=== PATIENT | male | born 1930 | race Caucasian/White ===

== ENCOUNTER 2017-11-27 22:15 | Inpatient (IN) | payer MEDICARE ==
[~2017-11-27] VITALS: Ht 177.8 cm; Wt 71.4 kg
[2017-11-27 22:19] VITALS: BP 145/84; PULSE 77; RESP 16; TEMP 97.8; O2SAT 99
[2017-11-27] MEDS ORDERED: FURO1TAB62 PO (22:35)
[2017-11-27] MEDS ORDERED: LEVO112T2 PO (22:35)
[2017-11-27] MEDS ORDERED: METO25TA3 PO (22:35)
[2017-11-27] MEDS ORDERED: TERA2CAP3 PO (22:35)
[2017-11-27] MEDS ORDERED: CEPH-460 PO (22:35)
[2017-11-27] MEDS ORDERED: FINA5TAB2 (22:35)
[2017-11-27] MEDS ORDERED: XARE15TA PO (22:35)
[2017-11-27] MEDS ORDERED: VANCOMYCIN INJ 1,000 MG in SODIUM CHLOR 0.9% 250 ML INJ 250 ML IV ONE (22:45)
[2017-11-27] MEDS ORDERED: PIPERACIL-TAZO 2.25 GM PREMIX 50 ML IV ONE (22:45)
[2017-11-27 23:17] LABS: BILIRUBIN, URINE NEG (NEG); BLOOD, URINE TRACE (NEG); GLUCOSE,URINE NEG (NEG); KETONE, URINE NEG (NEG); NITRITE,URINE NEG (NEG); URINE COLOR YELLOW (YELLW/STRAW); URINE LEUKOCYTE ESTERASE NEG (NEG)
[2017-11-27 23:18] LABS: AUTOMATED NEUTROPHIL # 8.2 TH/MM3 (1.8-7.7); BASOPHIL # 0.1 TH/MM3 (0-0.2); EOSINOPHIL # 0.4 TH/MM3 (0-0.4); EOSINOPHIL % 3.8 % (0.0-4.0); HEMATOCRIT 34.1 % (39.0-51.0); HEMOGLOBIN 10.7 GM/DL (13.0-17.0); LYMPH % 5.2 % (9.0-44.0); LYMPHOCYTE # 0.5 TH/MM3 (1.0-4.8); MEAN CELL VOLUME 79.2 FL (80.0-100.0); MEAN CORPUSCULAR HEMOGLOBIN 24.9 PG (27.0-34.0); MEAN CORPUSCULAR HGB CONC 31.4 % (32.0-36.0); MEAN PLATELET VOLUME 7.4 FL (7.0-11.0); MONOCYTE # 0.9 TH/MM3 (0-0.9); PLATELET COUNT 221 TH/MM3 (150-450); RED BLOOD COUNT 4.31 MIL/MM3 (4.50-5.90); RED CELL DISTRIBUTION WIDTH 16.1 % (11.6-17.2); WHITE BLOOD COUNT 10.1 TH/MM3 (4.0-11.0)
[2017-11-27 23:22] LABS: RBC, URINE 0-3 /hpf (0-3); SQUAMOUS EPITHELIAL CELL URINE 0-5 /hpf (0-5); WBC, URINE 0-2 /hpf (0-5)
[2017-11-27 23:26] LABS: CHLORIDE 97 MEQ/L (98-107); SODIUM (NA) 129 MEQ/L (136-145)
[2017-11-27 23:29] LABS: CALCIUM 8.2 MG/DL (8.5-10.1)
[2017-11-27 23:30] LABS: ALBUMIN 3.5 GM/DL (3.4-5.0); GLUCOSE,RANDOM 98 MG/DL (74-106)
[2017-11-27 23:32] LABS: INTERNATIONAL NORMALIZED RATIO 1.2 RATIO; PROTHROMBIN TIME - PATIENT 12.5 SEC (9.8-11.6)
[2017-11-27 23:33] LABS: ALT (GPT) 32 U/L (12-78); AST (GOT) 26 U/L (15-37); GLOMERULAR FILTRATION RATE 34 ML/MIN (>89)
[2017-11-27 23:34] LABS: BLOOD UREA NITROGEN 38 MG/DL (7-18); TOTAL BILIRUBIN ADULT 0.6 MG/DL (0.2-1.0); TOTAL PROTEIN 6.9 GM/DL (6.4-8.2)
[2017-11-27 23:36] LABS: ALKALINE PHOSPHATASE 89 U/L (45-117)
[2017-11-27 23:38] LABS: TROPONIN I LESS THAN 0.02 NG/ML (0.02-0.05)
[2017-11-27] MEDS ORDERED: SODIUM CHLOR 0.9% 1000 ML INJ 1,000 ML IV ONE (23:45)
--- NOTE | 2017-11-27 23:53 | PD ---
HPI Chief Complaint: Edema Time Seen by Provider: 22:41 Travel History International Travel<30 days: No Contact w/Intl Traveler<30days: No Traveled to known affect area: No History of Present Illness HPI 86-year-old male with history of hypertension and hypothyroidism here for evaluation of right arm swelling for the last 2 days. Patient states that he was scratching his skin and at the same day he started noticing right arm swelling and redness. Patient went to an urgent care and they give him Keflex and started taking it but it seems that his symptoms are getting worse. He has no fever or chills or night sweats, no chest pain or shortness of breath. Patient takes Xarelto for A. fib and denies any blood in the stool or any excessive bleeding. PFSH Past Medical History Atrial Fibrillation: Yes Heart Rhythm Problems: Yes Cardiovascular Problems: Yes Hypertension: Yes Thyroid Disease: Yes Tetanus Vaccination: Unknown ?: Not Social History Alcohol Use: No Tobacco Use: No Substance Use: No Allergies-Medications (Allergen,Severity, Reaction): Coded Allergies: epinephrine (Verified Allergy, Intermediate, 11/27/17) Reported Meds & Prescriptions Reported Meds & Active Scripts Active Reported Keflex (Cephalexin) 500 Mg Cap 500 Mg PO Q8H Levothyroxine (Levothyroxine Sodium) 112 Mcg Tab 112 Mcg PO DAILY Xarelto (Rivaroxaban) 15 Mg Tab 15 Mg PO DAILY Terazosin (Terazosin HCl) 2 Mg Cap 2 Mg PO HS Finasteride 5 Mg Tab 5 Mg DAILY Do not crush. Metoprolol Tartrate 25 Mg Tab 25 Mg PO DAILY Lasix (Furosemide) 20 Mg Tab 20 Mg PO DAILY Review of Systems Except as stated in HPI: all other systems reviewed are Neg Physical Exam Narrative GENERAL: Alert oriented 3 no acute distress SKIN: Focused skin assessment warm/dry. HEAD: Atraumatic. Normocephalic. EYES: Pupils equal and round. No scleral icterus. No injection or drainage. ENT: No nasal bleeding or discharge. Mucous membranes pink and moist. NECK: Trachea midline. No JVD. CARDIOVASCULAR: Regular rate and rhythm. No murmur appreciated. RESPIRATORY: No accessory muscle use. Clear to auscultation. Breath sounds equal bilaterally. GASTROINTESTINAL: Abdomen soft, non-tender, nondistended. Hepatic and splenic margins not palpable. MUSCULOSKELETAL: Right arm swelling and erythema and warm to touch above the elbow, area of dark discoloration in the dorsal aspect of the right hand, no crepitus, no ulcers or open wounds. Pulses intact in all 4 extremities, no motor sensory loss. NEUROLOGICAL: Awake and alert. No obvious cranial nerve deficits. Motor grossly within normal limits. Normal speech. PSYCHIATRIC: Appropriate mood and affect; insight and judgment normal. Data Data Last Documented VS Vital Signs Date Time Temp Pulse Resp B/P (MAP) Pulse Ox O2 Delivery O2 Flow Rate FiO2 11/27/17 22:26 98 Room Air 11/27/17 22:19 97.8 77 16 145/84 (104) Orders Orders Complete Blood Count With Diff (11/27/17 22:41) Comprehensive Metabolic Panel (11/27/17 22:41) Lactic Acid (11/27/17 22:41) Act Partial Throm Time (Ptt) (11/27/17 22:41) Prothrombin Time / Inr (Pt) (11/27/17 22:41) Troponin I (11/27/17 22:41) Urinalysis - C+S If Indicated (11/27/17 22:41) C-Reactive Protein (Crp) (11/27/17 22:41) Blood Culture (11/27/17 22:41) Vancomycin Inj (Vancomycin Inj) (11/27/17 22:45) Piperacil-Tazo 2.25 Gm Premix (Zosyn 2.2 (11/27/17 22:45) Sodium Chlor 0.9% 1000 Ml Inj (Ns 1000 M (11/27/17 23:45) Admit Order (Ed Use Only) (11/28/17 00:00) Labs Laboratory Tests Test 11/27/17 23:00 White Blood Count 10.1 TH/MM3 Red Blood Count 4.31 MIL/MM3 Hemoglobin 10.7 GM/DL Hematocrit 34.1 % Mean Corpuscular Volume 79.2 FL Mean Corpuscular Hemoglobin 24.9 PG Mean Corpuscular Hemoglobin Concent 31.4 % Red Cell Distribution Width 16.1 % Platelet Count 221 TH/MM3 Mean Platelet Volume 7.4 FL Neutrophils (%) (Auto) 81.0 % Lymphocytes (%) (Auto) 5.2 % Monocytes (%) (Auto) 9.0 % Eosinophils (%) (Auto) 3.8 % Basophils (%) (Auto) 1.0 % Neutrophils # (Auto) 8.2 TH/MM3 Lymphocytes # (Auto) 0.5 TH/MM3 Monocytes # (Auto) 0.9 TH/MM3 Eosinophils # (Auto) 0.4 TH/MM3 Basophils # (Auto) 0.1 TH/MM3 CBC Comment DIFF FINAL Differential Comment Prothrombin Time 12.5 SEC Prothromb Time International Ratio 1.2 RATIO Activated Partial Thromboplast Time 28.6 SEC Urine Color YELLOW Urine Turbidity CLEAR Urine pH 5.0 Urine Specific [place] 1.010 Urine Protein NEG mg/dL Urine Glucose (UA) NEG mg/dL Urine Ketones NEG mg/dL Urine Occult Blood TRACE Urine Nitrite NEG Urine Bilirubin NEG Urine Urobilinogen 0.2 MG/DL Urine Leukocyte Esterase NEG Urine RBC 0-3 /hpf Urine WBC 0-2 /hpf Urine Squamous Epithelial Cells 0-5 /hpf Urine Bacteria NONE /hpf Microscopic Urinalysis Comment CULT NOT INDICATED Blood Urea Nitrogen 38 MG/DL Creatinine 1.90 MG/DL Random Glucose 98 MG/DL Total Protein 6.9 GM/DL Albumin 3.5 GM/DL Calcium Level 8.2 MG/DL Alkaline Phosphatase 89 U/L Aspartate Amino Transf (AST/SGOT) 26 U/L Alanine Aminotransferase (ALT/SGPT) 32 U/L Total Bilirubin 0.6 MG/DL Sodium Level 129 MEQ/L Potassium Level 4.5 MEQ/L Chloride Level 97 MEQ/L Carbon Dioxide Level 25.0 MEQ/L Anion Gap 7 MEQ/L Estimat Glomerular Filtration Rate 34 ML/MIN Lactic Acid Level 0.7 mmol/L Troponin I LESS THAN 0.02 NG/ML C-Reactive Protein 10.80 MG/DL [facility] Medical Decision Making Medical Screen Exam Complete: Yes Emergency Medical Condition: Yes Differential Diagnosis Cellulitis, DVT the right arm, necrotizing fasciitis. Narrative Course 86-year-old male here for evaluation of right hand/arm swelling rapidly progressing, examination reveals erythema warmth to touch and swelling of the right arm above the elbow, extension of the infection was marked and timed for further evaluation, labs significant for hypernatremia and left shift and elevated BUN and creatinine. Patient was started on IV fluids and IV antibiotics and blood cultures were drawn prior to the IV antibiotics. Patient will be admitted for failure of outpatient therapy for cellulitis, there is no crepitus on physical exam is no concern for necrotizing fasciitis meanwhile patient will need further evaluation for the hyponatremia. Patient may also need inpatient upper venous Doppler to rule out DVT the right arm. I discussed the case with Dr. Carrington Monzon who accepted the patient. Laboratory Tests Test 11/27/17 23:00 White Blood Count 10.1 TH/MM3 Red Blood Count 4.31 MIL/MM3 Hemoglobin 10.7 GM/DL Hematocrit 34.1 % Mean Corpuscular Volume 79.2 FL Mean Corpuscular Hemoglobin 24.9 PG Mean Corpuscular Hemoglobin Concent 31.4 % Red Cell Distribution Width 16.1 % Platelet Count 221 TH/MM3 Mean Platelet Volume 7.4 FL Neutrophils (%) (Auto) 81.0 % Lymphocytes (%) (Auto) 5.2 % Monocytes (%) (Auto) 9.0 % Eosinophils (%) (Auto) 3.8 % Basophils (%) (Auto) 1.0 % Neutrophils # (Auto) 8.2 TH/MM3 Lymphocytes # (Auto) 0.5 TH/MM3 Monocytes # (Auto) 0.9 TH/MM3 Eosinophils # (Auto) 0.4 TH/MM3 Basophils # (Auto) 0.1 TH/MM3 CBC Comment DIFF FINAL Differential Comment Prothrombin Time 12.5 SEC Prothromb Time International Ratio 1.2 RATIO Activated Partial Thromboplast Time 28.6 SEC Urine Color YELLOW Urine Turbidity CLEAR Urine pH 5.0 Urine Specific [place] 1.010 Urine Protein NEG mg/dL Urine Glucose (UA) NEG mg/dL Urine Ketones NEG mg/dL Urine Occult Blood TRACE Urine Nitrite NEG Urine Bilirubin NEG Urine Urobilinogen 0.2 MG/DL Urine Leukocyte Esterase NEG Urine RBC 0-3 /hpf Urine WBC 0-2 /hpf Urine Squamous Epithelial Cells 0-5 /hpf Urine Bacteria NONE /hpf Microscopic Urinalysis Comment CULT NOT INDICATED Blood Urea Nitrogen 38 MG/DL Creatinine 1.90 MG/DL Random Glucose 98 MG/DL Total Protein 6.9 GM/DL Albumin 3.5 GM/DL Calcium Level 8.2 MG/DL Alkaline Phosphatase 89 U/L Aspartate Amino Transf (AST/SGOT) 26 U/L Alanine Aminotransferase (ALT/SGPT) 32 U/L Total Bilirubin 0.6 MG/DL Sodium Level 129 MEQ/L Potassium Level 4.5 MEQ/L Chloride Level 97 MEQ/L Carbon Dioxide Level 25.0 MEQ/L Anion Gap 7 MEQ/L Estimat Glomerular Filtration Rate 34 ML/MIN Lactic Acid Level 0.7 mmol/L Troponin I LESS THAN 0.02 NG/ML C-Reactive Protein 10.80 MG/DL Diagnosis Primary Impression: Cellulitis Qualified Codes: L03.113 - Cellulitis of right upper limb Additional Impression: Hyponatremia Admitting Information Admitting Physician Requests: Admit Condition: Stable Nick Taylor MD Nov 27, 2017 23:53
[2017-11-28] VITALS (8 sets, daily range): BP systolic 134–161; BP diastolic 62–84; PULSE 72–87; RESP 16–20; TEMP 96.5–97.9; O2SAT 96–100
[2017-11-28] MEDS ORDERED: Vancomycin Consult Pharmacy 1 EA OTHER SCH (05:45)
[2017-11-28] MEDS: SODIUM CHLOR 0.9% 1000 ML INJ 1,000 ML IV SCH ×3 (05:56→22:02)
[2017-11-28] MEDS ORDERED: METO25TA3 PO (06:14)
[2017-11-28] MEDS: PIPERACIL-TAZO 2.25 GM PREMIX 50 ML IV SCH ×3 (06:15→22:05)
[2017-11-28] MEDS: LEVOTHYROXINE SODIUM 112 MCG TAB PO SCH (06:38)
--- NOTE | 2017-11-28 07:05 | MH ---
cc: Nicolás Shultz MD DATE OF ADMISSION: 11/28/2017 ADMISSION DIAGNOSES: 1. Cellulitis, right upper extremity. 2. Atrial fibrillation. 3. Hypothyroidism. 4. Benign prostatic hypertrophy. 5. Prior history of lymphoma PERTINENT HISTORY OF PRESENT ILLNESS: This is an 86-year-old white male who came in for increased swelling and redness of his right arm over the last 2 days. He had scratched his skin and developed some forearm redness a few days ago and went to an urgent care center and was put on Keflex, but in the last couple days, his redness and swelling has progressed down to the hand and up above the elbow region. It was previously on the mid forearm region. He came into the ED and cellulitis. He was given some vancomycin and Zosyn last night. His swelling has gone little down a little this morning, according to the nurse. He was admitted a little bit after midnight. He had no fever or chills. No other complaints. PAST MEDICAL HISTORY: He has atrial fibrillation and is on Xarelto. He denies any history of hypertension, even though the ER records indicate that he has hypertension. He is under treatment for hypothyroidism and BPH. He has had lymphoma treated with chemotherapy about 8 years ago and has no problems since he was in remission. He has had some skin cancers removed. He denies any heart attack, CHF, stroke, or diabetes. Denies liver or kidney disease, or colon disease. Denies any lung disease. He does take a diuretic for some intermittent swelling of his ankles. PAST SURGICAL HISTORY: He has had no operations other than for skin cancers removed. ALLERGIES: NONE. MEDICATIONS: He is on metoprolol 25 mg twice a day. Furosemide 20 mg. He uses it about 1 tablet every 48 hours, but can take it daily for swelling. He uses Terazosin 2 mg at bedtime. Xarelto 15 mg daily. Levothyroxine 112 mcg daily. He was on cephalexin 500 mg every 8 hours prior to coming in. FAMILY HISTORY: His mother at 83 of some sort of internal bleeding. His father in his 50s of a stroke. SOCIAL HISTORY: He is , has occasional beers, never smoked. 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 REVIEW OF SYSTEMS: GENERAL: No fever, chills, sweats. HEENT: Without complaints. CARDIOVASCULAR: No chest pain, orthopnea, PND. PULMONARY: No cough, hemoptysis, wheezing. GASTROINTESTINAL: No nausea, vomiting, abdominal pain, constipation, diarrhea. GENITOURINARY: Without dysuria or hematuria. MUSCULOSKELETAL: Without complaints. SKIN: As mentioned. NEUROLOGIC: Without any focal complaints. PHYSICAL EXAMINATION: GENERAL: Pleasant white male in no acute distress. VITAL SIGNS: Temperature 97.8, pulse 72, respirations 16, BP 143/68, O2 saturation 100% on room air. HEENT: TMs are clear. Pupils are equal. Sclerae nonicteric. Nose without lesion. Mouth without inflammation or lesion. NECK: Without bruit. No JVD. CARDIOVASCULAR: Irregularly irregular rhythm, consistent with atrial fibrillation. No murmur. LUNGS: Clear. ABDOMEN: Soft, nontender. No masses. EXTREMITIES: Pulses in both feet are about 1+. There is no ankle edema at this time. He has some bruising of both hands and a little bit of the forearm of both arms. He does have some redness of the right arm extending just a little bit from above the elbow down to the right hand, slightly warm to touch. NEUROLOGIC: Alert and oriented x 3. Motor and sensory intact. Cranial nerves intact. LABORATORY DATA: His white count was 10.1; hemoglobin 10.7; platelets are 221,000. His BUN was 38, creatinine 1.9, GFR 34. C-reactive protein was 10.8. Albumin and protein are normal. Sodium 129, potassium 4.5, chloride 97, CO2 of 25. Urinalysis was negative. INR was 1.2. ASSESSMENT: 1. Cellulitis, right upper extremity. 2. Atrial fibrillation. 3. Hypothyroidism. 4. Benign prostatic hypertrophy. 5. Prior history of lymphoma 6. Mild hyponatremia. 7. Probable stage III chronic kidney disease. PLAN: He has been put on vancomycin and Zosyn for now IV. We will give him IV fluids with normal saline to see if it will help his kidney function improve some. He will be maintained on his regular medications. Hopefully, we can transition him to an oral antibiotic in 48 hours. MD PALMA Prasad/JULIEN , 06:33 AM , 07:05 AM
[2017-11-28] MEDS: FUROSEMIDE 20 MG TAB PO SCH (08:26)
[2017-11-28] MEDS: FINASTERIDE 5 MG TAB PO SCH (08:26)
[2017-11-28] MEDS: METOPROLOL TARTRATE 25 MG TAB PO SCH ×2 (08:26→22:01)
[2017-11-28] MEDS: RIVAROXABAN 15 MG TAB PO SCH (08:27)
[2017-11-28 08:59] LABS: CREATININE 1.6 MG/DL (0.60-1.30)
[2017-11-28] MEDS ORDERED: TERAZOSIN HCL 1 MG CAP PO SCH (21:00)
[2017-11-28] MEDS ORDERED: VANCOMYCIN 1,000 MG/NS 250 ML IV SCH ×2 (21:00)
[2017-11-29] VITALS: BP 136/74; PULSE 72; RESP 20; TEMP 96; O2SAT 98
[2017-11-29] MEDS: PIPERACIL-TAZO 2.25 GM PREMIX 50 ML IV SCH (05:31)
[2017-11-29] MEDS: LEVOTHYROXINE SODIUM 112 MCG TAB PO SCH (05:31)
[2017-11-29] MEDS: SODIUM CHLOR 0.9% 1000 ML INJ 1,000 ML IV SCH (05:33)
[2017-11-29] MEDS ORDERED: VANCOMYCIN INJ 1,250 MG in SODIUM CHLOR 0.9% 250 ML INJ 250 ML IV SCH (06:00)
[2017-11-29 06:40] LABS: AUTOMATED NEUTROPHIL # 5.4 TH/MM3 (1.8-7.7); BASOPHIL % 0.6 % (0.0-2.0); EOSINOPHIL # 0.3 TH/MM3 (0-0.4); EOSINOPHIL % 4.7 % (0.0-4.0); HEMATOCRIT 32.1 % (39.0-51.0); HEMOGLOBIN 10.3 GM/DL (13.0-17.0); LYMPH % 6.5 % (9.0-44.0); LYMPHOCYTE # 0.4 TH/MM3 (1.0-4.8); MEAN CELL VOLUME 80.1 FL (80.0-100.0); MEAN CORPUSCULAR HEMOGLOBIN 25.8 PG (27.0-34.0); MEAN CORPUSCULAR HGB CONC 32.2 % (32.0-36.0); MEAN PLATELET VOLUME 7.3 FL (7.0-11.0); MONO % 12.2 % (0.0-8.0); MONOCYTE # 0.8 TH/MM3 (0-0.9); PLATELET COUNT 243 TH/MM3 (150-450); RED BLOOD COUNT 4.01 MIL/MM3 (4.50-5.90); RED CELL DISTRIBUTION WIDTH 15.9 % (11.6-17.2); WHITE BLOOD COUNT 6.9 TH/MM3 (4.0-11.0)
[2017-11-29 07:12] LABS: BICARBONATE 24.3 MEQ/L (21.0-32.0); CALCIUM 7.8 MG/DL (8.5-10.1); CREATININE 1.5 MG/DL (0.60-1.30)
--- NOTE | 2017-11-29 07:45 | HHI.PR ---
Subjective Remarks He has no complaints. He states he has no pain in his right arm and the swelling has resolved and redness much better. Objective Vitals Vital Signs Date Time Temp Pulse Resp B/P (MAP) Pulse Ox O2 Delivery O2 Flow Rate FiO2 11/29/17 00:00 96.0 72 20 136/74 (94) 98 11/28/17 20:00 96.5 72 20 134/79 (97) 96 11/28/17 16:00 97.8 84 19 139/84 (102) 98 11/28/17 12:00 97.1 87 20 140/74 (96) 100 11/28/17 08:00 11/28/17 08:00 96.9 81 19 161/82 (108) 99 Result Diagram: 11/29/17 0450 11/29/17 0450 Other Results Laboratory Tests Test 11/27/17 23:00 11/28/17 08:40 11/29/17 04:50 White Blood Count 10.1 TH/MM3 6.9 TH/MM3 Red Blood Count 4.31 MIL/MM3 4.01 MIL/MM3 Hemoglobin 10.7 GM/DL 10.3 GM/DL Hematocrit 34.1 % 32.1 % Mean Corpuscular Volume 79.2 FL 80.1 FL Mean Corpuscular Hemoglobin 24.9 PG 25.8 PG Mean Corpuscular Hemoglobin Concent 31.4 % 32.2 % Red Cell Distribution Width 16.1 % 15.9 % Platelet Count 221 TH/MM3 243 TH/MM3 Mean Platelet Volume 7.4 FL 7.3 FL Neutrophils (%) (Auto) 81.0 % 76.0 % Lymphocytes (%) (Auto) 5.2 % 6.5 % Monocytes (%) (Auto) 9.0 % 12.2 % Eosinophils (%) (Auto) 3.8 % 4.7 % Basophils (%) (Auto) 1.0 % 0.6 % Neutrophils # (Auto) 8.2 TH/MM3 5.4 TH/MM3 Lymphocytes # (Auto) 0.5 TH/MM3 0.4 TH/MM3 Monocytes # (Auto) 0.9 TH/MM3 0.8 TH/MM3 Eosinophils # (Auto) 0.4 TH/MM3 0.3 TH/MM3 Basophils # (Auto) 0.1 TH/MM3 0.0 TH/MM3 CBC Comment DIFF FINAL DIFF FINAL Differential Comment Prothrombin Time 12.5 SEC Prothromb Time International Ratio 1.2 RATIO Activated Partial Thromboplast Time 28.6 SEC Urine Color YELLOW Urine Turbidity CLEAR Urine pH 5.0 Urine Specific [place] 1.010 Urine Protein NEG mg/dL Urine Glucose (UA) NEG mg/dL Urine Ketones NEG mg/dL Urine Occult Blood TRACE Urine Nitrite NEG Urine Bilirubin NEG Urine Urobilinogen 0.2 MG/DL Urine Leukocyte Esterase NEG Urine RBC 0-3 /hpf Urine WBC 0-2 /hpf Urine Squamous Epithelial Cells 0-5 /hpf Urine Bacteria NONE /hpf Microscopic Urinalysis Comment CULT NOT INDICATED Blood Urea Nitrogen 38 MG/DL 32 MG/DL Creatinine 1.90 MG/DL 1.60 MG/DL 1.50 MG/DL Random Glucose 98 MG/DL 97 MG/DL Total Protein 6.9 GM/DL Albumin 3.5 GM/DL Calcium Level 8.2 MG/DL 7.8 MG/DL Alkaline Phosphatase 89 U/L Aspartate Amino Transf (AST/SGOT) 26 U/L Alanine Aminotransferase (ALT/SGPT) 32 U/L Total Bilirubin 0.6 MG/DL Sodium Level 129 MEQ/L 137 MEQ/L Potassium Level 4.5 MEQ/L 4.2 MEQ/L Chloride Level 97 MEQ/L 105 MEQ/L Carbon Dioxide Level 25.0 MEQ/L 24.3 MEQ/L Anion Gap 7 MEQ/L 8 MEQ/L Estimat Glomerular Filtration Rate 34 ML/MIN 41 ML/MIN 45 ML/MIN Lactic Acid Level 0.7 mmol/L Troponin I LESS THAN 0.02 NG/ML C-Reactive Protein 10.80 MG/DL Objective Remarks Exam: Pleasant male in no distress. HEENT: pupils equal, no scleral icterus, mouth negative Neck: No JVD Heart: RRR Lungs:Clear Abdomen: soft, nontender Extremities: the cellulitis of the right upper extremity is very much improved with no further swelling and the redness is barely visible now. He has ecchymosis of both hands and some on the forearms Neuro: No focal abnormalities. A/P Assessment and Plan Assessment: --Cellulitis right upper extremities that is much improved --Paroxysmal atrial fibrillation on Xarelto --Hypothyroidism --BPH --Hx of Lymphoma --Stage 3 CKD --Hyponatremia--resolved --Slight anemia likely secondary to his chronic kidney disease Plan: Stop his IV antibiotics. Start on Zyvox 600mg twice a day and discharge today. I told him to followup with his PCP (Dr Viera) in 2 days. He will resume his routine home medications. Nicolás Shultz MD Nov 29, 2017 07:45
[2017-11-29] MEDS ORDERED: ZYVO600T PO (07:52)
[2017-11-29 07:53] VITALS: BP 150/67; PULSE 68; RESP 20; TEMP 96.1; O2SAT 99
[2017-11-29] MEDS: FINASTERIDE 5 MG TAB PO SCH (08:50)
[2017-11-29] MEDS: FUROSEMIDE 20 MG TAB PO SCH (08:51)
[2017-11-29] MEDS: RIVAROXABAN 15 MG TAB PO SCH (08:51)
[2017-11-29] MEDS: METOPROLOL TARTRATE 25 MG TAB PO SCH (08:52)
[2017-11-29] MEDS ORDERED: LINEZOLID 600 MG TAB PO SCH (09:00)
[2017-11-29 11:26] VITALS: BP 144/70; PULSE 72; RESP 20; TEMP 96.4; O2SAT 98
--- NOTE | 2017-11-29 11:30 | PD.WCN.NOT ---
Wound Consult Additional Information: Spoke with MELINDA Carr 3rd floor PO.Patient was not seen. Patient is being discharged and per nurse, the wound to R leg is an open skin tear. Instructed MELINDA Carr to clean wound with normal saline or wound cleanser and apply oil emulsion gauze to partial thickness, dry skin tear, and cover with dry gauze rolled gauze and tape. Also, per RN Cellulitis to R arm is resolving and there are no open wounds noted to R arm. Kalyn Dye [facility] Nov 29, 2017 11:30
[2017-11-30] MEDS ORDERED: PHARMACY ORDERED LAB ONE (20:45)
[2017-12-02] MEDS ORDERED: PHARMACY ORDERED LAB ONE (05:45)
== END 2017-11-29 12:52 | disposition home or self-care (01) | DRG 603 ==
LOC: PHED 22:15 → PHEDA 11-28 00:02 → PHEDH 11-28 04:02 → OBSVTOIN 11-28 06:56 → PH3A 11-28 08:03
PROVIDERS: ADMIT Family Medicine; ATTEND Family Medicine
DX: L03.113 Cellulitis of right upper limb (principal); I48.0 Paroxysmal atrial fibrillation; E87.1 Hypo-osmolality and hyponatremia; N18.3 Chronic kidney disease, stage 3 (moderate); Z79.02 Long term (current) use of antithrombotics/antiplatelets; I12.9 Hypertensive chronic kidney disease with stage 1 through stage 4 chronic kidney disease, or unspecified chronic kidney disease; D63.1 Anemia in chronic kidney disease; E03.9 Hypothyroidism, unspecified; N40.0 Benign prostatic hyperplasia without lower urinary tract symptoms; Z85.72 Personal history of non-Hodgkin lymphomas
CPT/HCPCS: 80048; 80053; 81001; 82565; 83605; 84484; 85025; 85610; 85730; 86140; 87040; 96365; J2543; J3370; J7030; J7050

== ENCOUNTER 2017-12-11 14:00 | Inpatient (IN) | payer MEDICARE ==
[~2017-12-11] VITALS: Ht 179.1 cm; Wt 75.8 kg
[~2017-12-11 14:00] MED LIST: FINA5TAB2; FURO1TAB62 PO; LEVO112T2 PO; METO25TA3 PO; TERA2CAP3 PO; XARE15TA PO; ZYVO600T PO
[2017-12-11 14:24] VITALS: BP 117/62; PULSE 99; RESP 16; TEMP 98; O2SAT 98
[2017-12-11 15:45] VITALS: O2SAT 99
[2017-12-11 16:36] VITALS: BP 129/62; PULSE 87; RESP 16; O2SAT 99
[2017-12-11 16:39] LABS: BASOPHIL # 0.2 TH/MM3 (0-0.2); BASOPHIL % 1.7 % (0.0-2.0); EOSINOPHIL % 0.1 % (0.0-4.0); HEMATOCRIT 31.9 % (39.0-51.0); HEMOGLOBIN 10.5 GM/DL (13.0-17.0); LYMPH % 2.4 % (9.0-44.0); LYMPHOCYTE # 0.3 TH/MM3 (1.0-4.8); MEAN CORPUSCULAR HGB CONC 32.9 % (32.0-36.0); MEAN PLATELET VOLUME 7.6 FL (7.0-11.0); MONO % 1.1 % (0.0-8.0); MONOCYTE # 0.1 TH/MM3 (0-0.9); NEUT % 94.7 % (16.0-70.0); PLATELET COUNT 107 TH/MM3 (150-450); RED BLOOD COUNT 4.04 MIL/MM3 (4.50-5.90); RED CELL DISTRIBUTION WIDTH 15.4 % (11.6-17.2); WHITE BLOOD COUNT 10.6 TH/MM3 (4.0-11.0)
--- NOTE | 2017-12-11 16:46 | RADRPT ---
EXAM DATE: 12/11/2017 4:23 PM EDT AGE/SEX: 87 years / Male INDICATIONS: Right leg swelling. CLINICAL DATA: This is the patient's initial encounter. Patient reports that signs and symptoms have been present for 1 day and indicates a pain score of 5/10. MEDICAL/SURGICAL HISTORY: Hypertension. Thyroid disease. A-fib. Skin cancer. Anticoagulant ther apy. . Left shoulder skin cancer removal. COMPARISON: No prior exams available for comparison. TECHNIQUE: Venous ultrasound of both lower extremities was performed from the inguinal ligament to t he proximal calf. Real-time, color Doppler and spectral tracing, compression and augmentation techni ques were used. FINDINGS: There is good visualization of the venous system. Veins are easily compressible with augme ntable flow. There is no evidence of deep venous thrombosis. Generalized tissue edema is evident. CONCLUSION: Negative for deep venous thrombosis. Electronically signed by: William Mejia MD 12/11/2017 4:44 PM EDT
[2017-12-11 16:50] LABS: ALBUMIN 2.8 GM/DL (3.4-5.0); ALKALINE PHOSPHATASE 100 U/L (45-117); ALT (GPT) 20 U/L (12-78); AST (GOT) 12 U/L (15-37); BICARBONATE 20.5 MEQ/L (21.0-32.0); BLOOD UREA NITROGEN 44 MG/DL (7-18); CALCIUM 8.3 MG/DL (8.5-10.1); CHLORIDE 94 MEQ/L (98-107); GLOMERULAR FILTRATION RATE 44 ML/MIN (>89); GLUCOSE,RANDOM 105 MG/DL (74-106); TOTAL BILIRUBIN ADULT 1.3 MG/DL (0.2-1.0); TOTAL PROTEIN 6.3 GM/DL (6.4-8.2)
[2017-12-11 16:52] LABS: SODIUM (NA) 124 MEQ/L (136-145)
[2017-12-11] MEDS ORDERED: VANCOMYCIN INJ 1,100 MG in SODIUM CHLOR 0.9% 250 ML INJ 250 ML IV ONE (17:15)
--- NOTE | 2017-12-11 17:38 | PD ---
HPI Chief Complaint: Edema Time Seen by Provider: 15:06 Travel History International Travel<30 days: No Contact w/Intl Traveler<30days: No Traveled to known affect area: No History of Present Illness HPI This is an 87-year-old male who presents to the emergency department with right lower extremity swelling that has been going on for 4 days, constant, severe, worsening associated with pain. He was seen at an urgent care 4 days ago and had an ultrasound of the leg which was negative. The leg is gotten more red and more painful. Preceding this he was given exercises by physical therapy for his ankle and calf which he thinks may have exacerbated the swelling. He denies any other injuries. He is on Xarelto. He has a history of cellulitis in the right upper extremity for which he just finished a long course of linezolid. He denies any fevers or chills. PFSH Past Medical History Hx Anticoagulant Therapy: Yes Atrial Fibrillation: Yes Heart Rhythm Problems: Yes Cancer: Yes (LEFT SHOLDER SKIN CXR ) Cardiovascular Problems: Yes (a-fib) Diminished Hearing: Yes Endocrine: Yes Hypertension: Yes Musculoskeletal: No Neurologic: No Respiratory: No Thyroid Disease: Yes Tetanus Vaccination: > 5 Years Influenza Vaccination: No ?: Not Past Surgical History Other Surgery: Yes (SKIN CXR LEFT SHOLDER REMOVAL ) Social History Alcohol Use: No Tobacco Use: No Substance Use: No Allergies-Medications (Allergen,Severity, Reaction): Coded Allergies: epinephrine (Verified Allergy, Intermediate, 12/11/17) Reported Meds & Prescriptions Reported Meds & Active Scripts Active Reported Metoprolol Tartrate 25 Mg Tab 25 Mg PO BID Levothyroxine (Levothyroxine Sodium) 112 Mcg Tab 112 Mcg PO DAILY Xarelto (Rivaroxaban) 15 Mg Tab 15 Mg PO DAILY Terazosin (Terazosin HCl) 2 Mg Cap 2 Mg PO HS Finasteride 5 Mg Tab 5 Mg DAILY Do not crush. Lasix (Furosemide) 20 Mg Tab 20 Mg PO DAILY Review of Systems Except as stated in HPI: all other systems reviewed are Neg Physical Exam Narrative GENERAL:Well appearing, no acute distress SKIN: Dark erythema and some warmth of the right lower extremity with scattered ecchymoses from the knee down to the ankle, well-healing wound on the right lateral distal lower extremity HEAD: Atraumatic. Normocephalic. EYES: Pupils equal and round. No injection or drainage. ENT: Moist mucous membranes. NECK: Trachea midline. CARDIOVASCULAR: Regular rate and rhythm. No murmur appreciated. Jugular venous distention. 2+ pretibial edema in the left lower extremity, 3+ edema in the right lower extremity RESPIRATORY: Clear to auscultation. Breath sounds equal bilaterally. GASTROINTESTINAL: Abdomen soft, non-tender, nondistended. MUSCULOSKELETAL: No obvious deformities. NEUROLOGICAL: Awake and alert. No obvious cranial nerve deficits. Moving all extremities. PSYCHIATRIC: Appropriate mood and affect; insight and judgment normal. Data Data Last Documented VS Vital Signs Date Time Temp Pulse Resp B/P (MAP) Pulse Ox O2 Delivery O2 Flow Rate FiO2 12/11/17 17:40 92 18 115/63 (80) 99 Room Air 12/11/17 14:24 98.0 Orders Orders Complete Blood Count With Diff (12/11/17 15:17) Comprehensive Metabolic Panel (12/11/17 15:17) Ecg Monitoring (12/11/17 15:17) Iv Access Insert/Monitor (12/11/17 15:17) Oximetry (12/11/17 15:17) Oxygen Administration (12/11/17 15:17) Us Leg Venous Doppler (12/11/17 ) Westergren Sedimentation Rate (12/11/17 15:17) C-Reactive Protein (Crp) (12/11/17 15:17) B-Type Natriuretic Peptide (12/11/17 17:06) Vancomycin Inj (Vancomycin Inj) (12/11/17 17:15) Admit Order (Ed Use Only) (12/11/17 17:55) Labs Laboratory Tests Test 12/11/17 15:45 12/11/17 16:31 White Blood Count 10.6 TH/MM3 Red Blood Count 4.04 MIL/MM3 Hemoglobin 10.5 GM/DL Hematocrit 31.9 % Mean Corpuscular Volume 79.0 FL Mean Corpuscular Hemoglobin 26.0 PG Mean Corpuscular Hemoglobin Concent 32.9 % Red Cell Distribution Width 15.4 % Platelet Count 107 TH/MM3 Mean Platelet Volume 7.6 FL Neutrophils (%) (Auto) 94.7 % Lymphocytes (%) (Auto) 2.4 % Monocytes (%) (Auto) 1.1 % Eosinophils (%) (Auto) 0.1 % Basophils (%) (Auto) 1.7 % Neutrophils # (Auto) 10.0 TH/MM3 Lymphocytes # (Auto) 0.3 TH/MM3 Monocytes # (Auto) 0.1 TH/MM3 Eosinophils # (Auto) 0.0 TH/MM3 Basophils # (Auto) 0.2 TH/MM3 CBC Comment AUTO DIFF Differential Comment AUTO DIFF CONFIRMED Erythrocyte Sedimentation Rate 50 mm/hr Blood Urea Nitrogen 44 MG/DL Creatinine 1.50 MG/DL Random Glucose 105 MG/DL Total Protein 6.3 GM/DL Albumin 2.8 GM/DL Calcium Level 8.3 MG/DL Alkaline Phosphatase 100 U/L Aspartate Amino Transf (AST/SGOT) 12 U/L Alanine Aminotransferase (ALT/SGPT) 20 U/L Total Bilirubin 1.3 MG/DL Sodium Level 124 MEQ/L Potassium Level 4.8 MEQ/L Chloride Level 94 MEQ/L Carbon Dioxide Level 20.5 MEQ/L Anion Gap 10 MEQ/L Estimat Glomerular Filtration Rate 44 ML/MIN C-Reactive Protein 17.40 MG/DL B-Type Natriuretic Peptide 950 PG/ML MDM Medical Decision Making Medical Screen Exam Complete: Yes Emergency Medical Condition: Yes Interpretation(s) Afebrile, mild tachycardia, normotensive No leukocytosis Anemia Sed rate and CRP are elevated Hyponatremia Creatinine is 1.5 BNP is 950 Total bilirubin is 1.3 Differential Diagnosis Cellulitis, DVT, hematoma, electrolyte abnormality, congestive heart failure, renal failure Narrative Course This is an 87-year-old male who presents to the emergency department with increasing right lower extremity swelling over the past several days. He is a history of recent cellulitis in his right upper extremity. He has a chronic healing wound on his right lower extremity. On exam his leg is edematous, warm and erythematous. He was placed on a monitor and an IV was established. Labs were obtained which demonstrate no leukocytosis but elevated inflammatory markers. He is hyponatremic and on exam he has peripheral edema and jugular venous distention concerning for congestive heart failure. BNP was added which was 950. I think this is a new diagnosis for the patient although he is on Lasix at home. Patient will be admitted for IV antibiotics in the setting of cellulitis of the right lower extremity as well as for diuresis and electrolyte management in the setting of hyponatremia. Physician Communication Physician Communication Discussed with Dr. Srivastava Diagnosis Primary Impression: Cellulitis of right lower extremity Additional Impressions: Hyponatremia Congestive heart failure Qualified Codes: I50.9 - Heart failure, unspecified Admitting Information Admitting Physician Requests: it Kate Redmond MD Dec 11, 2017 17:38
[2017-12-11 17:40] VITALS: BP 115/63; PULSE 92; RESP 18; O2SAT 99
[2017-12-11] MEDS ORDERED: MAGNESIUM HYDROXIDE SUSP 30 ML CUP PO PRN (19:15)
[2017-12-11] MEDS ORDERED: ACETAMINOPHEN 325 MG TAB PO PRN (19:15)
[2017-12-11] MEDS: SODIUM CHLOR 0.9% 1000 ML INJ 1,000 ML IV SCH (19:15)
[2017-12-11] MEDS ORDERED: NALOXONE HCL 0.4 MG/ML AMP IV PUSH PRN (19:15)
[2017-12-11] MEDS ORDERED: BISACODYL 10 MG SUPP RECTAL PRN (19:15)
[2017-12-11] MEDS ORDERED: SENNOSIDES 8.6 MG TAB PO PRN (19:15)
[2017-12-11] MEDS ORDERED: LACTULOSE SYRUP 20 GM/30 ML CUP PO PRN (19:15)
[2017-12-11] MEDS ORDERED: SODIUM CHLORIDE 0.9% FLUSH 10 ML FLUSH IV FLUSH PRN (19:15)
--- NOTE | 2017-12-11 19:28 | HHI.HP ---
HPI Service [facility] Hospitalists Primary Care Physician Alley Viera MD Admission Diagnosis cellulitis, hyponatremia Chief Complaint: 4days progressive swelling warmth rt lower extremity Travel History International Travel<30 Days: No Contact w/Intl Traveler <30 Da: No Traveled to Known Affected Are: No History of Present Illness This is an 87-year-old male who presents to the emergency department with right lower extremity swelling that has been going on for 4 days, constant, severe, worsening associated with pain. He was seen at an urgent care 4 days ago and had an ultrasound of the leg which was negative. The leg is gotten more red and more painful. Preceding this he was given exercises by physical therapy for his ankle and calf which he thinks may have exacerbated the swelling. He denies any other injuries. He is on Xarelto. He has a history of cellulitis in the right upper extremity for which he just finished a long course of linezolid was in hospital about 8 days ago. He denies any fevers or chills. Patient in er found to have rt lower extremity cellulitis also some chronic kidney disease and low sodium ,patient states appetite has been poor lately,a BNP was done and was elevated at 900 patient intermittently takes Lasix he thinks for edema. Denies fever ,chills ,SOB,chest pain recent rt upper extremity edema and cellulitis which resolved. Review of Systems Musculoskeletal: COMPLAINS OF: Joint Swelling Other pain to rt lower leg Past Family Social History Past Medical History atrial fib,hypothyroid,BPH,?edema vs chf, Past Surgical History skin cancer treatment Reported Medications lopressor 25 bid,lasix 20 ?intermittent usage Allergies: Coded Allergies: epinephrine (Verified Allergy, Intermediate, 12/11/17) Family History cva sister Social History NS rare beer Physical Exam Vital Signs Vital Signs Date Time Temp Pulse Resp B/P (MAP) Pulse Ox O2 Delivery O2 Flow Rate FiO2 12/11/17 17:40 92 18 115/63 (80) 99 Room Air 12/11/17 16:36 87 16 129/62 (84) 99 Room Air 12/11/17 15:45 99 Room Air 12/11/17 15:45 99 Room Air 12/11/17 15:00 93 18 99 Room Air 12/11/17 14:24 98.0 99 16 117/62 (80) 98 Physical Exam GENERAL: This is a well-nourished, well-developed patient, in no apparent distress. SKIN: No rashes, ecchymoses or lesions. Cool and dry. Right lower extremity- dark erythema warmth with areas of ecchymosis knee down to ankle healed wounds rt lower extremity HEAD: Atraumatic. Normocephalic. No temporal or scalp tenderness. EYES: Pupils equal round and reactive. Extraocular motions intact. No scleral icterus. No injection or drainage. ENT: Nose without bleeding, purulent drainage or septal hematoma. Throat without erythema, tonsillar hypertrophy or exudate. Uvula midline. Airway patent. NECK: Trachea midline. No JVD or lymphadenopathy. Supple, nontender, no meningeal signs. CARDIOVASCULAR: Regular rate and rhythm without murmurs, gallops, or rubs. RESPIRATORY: Clear to auscultation. Breath sounds equal bilaterally. No wheezes , rales, or rhonchi. GASTROINTESTINAL: Abdomen soft, non-tender, nondistended. No hepato-splenomegaly , or palpable masses. No guarding. MUSCULOSKELETAL: Extremities without clubbing, cyanosis, or edema. No joint tenderness, effusion, or edema noted. No calf tenderness. Negative Homans sign bilaterally. NEUROLOGICAL: Awake and alert. Cranial nerves II through XII intact. Motor and sensory grossly within normal limits. Five out of 5 muscle strength in all muscle groups. Normal speech. Laboratory Laboratory Tests Test 12/11/17 15:45 12/11/17 16:31 White Blood Count 10.6 Red Blood Count 4.04 Hemoglobin 10.5 Hematocrit 31.9 Mean Corpuscular Volume 79.0 Mean Corpuscular Hemoglobin 26.0 Mean Corpuscular Hemoglobin Concent 32.9 Red Cell Distribution Width 15.4 Platelet Count 107 Mean Platelet Volume 7.6 Neutrophils (%) (Auto) 94.7 Lymphocytes (%) (Auto) 2.4 Monocytes (%) (Auto) 1.1 Eosinophils (%) (Auto) 0.1 Basophils (%) (Auto) 1.7 Neutrophils # (Auto) 10.0 Lymphocytes # (Auto) 0.3 Monocytes # (Auto) 0.1 Eosinophils # (Auto) 0.0 Basophils # (Auto) 0.2 CBC Comment AUTO DIFF Differential Comment AUTO DIFF CONFIRMED Erythrocyte Sedimentation Rate 50 Blood Urea Nitrogen 44 Creatinine 1.50 Random Glucose 105 Total Protein 6.3 Albumin 2.8 Calcium Level 8.3 Alkaline Phosphatase 100 Aspartate Amino Transf (AST/SGOT) 12 Alanine Aminotransferase (ALT/SGPT) 20 Total Bilirubin 1.3 Sodium Level 124 Potassium Level 4.8 Chloride Level 94 Carbon Dioxide Level 20.5 Anion Gap 10 Estimat Glomerular Filtration Rate 44 C-Reactive Protein 17.40 B-Type Natriuretic Peptide 950 Result Diagram: 12/11/17 1545 12/11/17 1545 Imaging Last 24 hours Impressions Lower Extremity Ultrasound 12/11/17 0000 Signed Impressions: CONCLUSION: Negative for deep venous thrombosis. Course in er started on vancomycin Caprini VTE Risk Assessment Caprini VTE Risk Assessment: Mod/High Risk (score >= 2) Caprini Risk Assessment Model Point Value = 1 Point Value = 2 Point Value = 3 Point Value = 5 Age 41-60 Minor surgery BMI > 25 kg/m2 Swollen legs Varicose veins or History of unexplained or recurrent spontaneous Oral contraceptives or hormone replacement Sepsis (< 1 month) Serious lung disease, including pneumonia (< 1 month) Abnormal pulmonary function Acute myocardial infarction Congestive heart failure (< 1 month) History of inflammatory bowel disease Medical patient at bed rest Age 61-74 Arthroscopic surgery Major open surgery (> 45 min) Laparoscopic surgery (> 45 min) Malignancy Confined to bed (> 72 hours) Immobilizing plaster cast Central venous access Age >= 75 History of VTE Family history of VTE Factor V Leiden Prothrombin [id number] Lupus anticoagulant Anticardiolipin antibodies Elevated serum homocysteine Heparin-induced thrombocytopenia Other congenital or acquired thrombophilia Stroke (< 1 month) Elective arthroplasty Hip, pelvis, or leg fracture Acute spinal cord injury (< 1 month) Prophylaxis Regimen Total Risk Factor Score Risk Level Prophylaxis Regimen 0-1 Low Early ambulation 2 Moderate Order ONE of the following: *Sequential Compression Device (SCD) *Heparin 5000 units SQ BID 3-4 Higher Order ONE of the following medications: *Heparin 5000 units SQ TID *Enoxaparin/Lovenox 40 mg SQ daily (WT < 150 kg, CrCl > 30 mL/min) *Enoxaparin/Lovenox 30 mg SQ daily (WT < 150 kg, CrCl > 10-29 mL/min) *Enoxaparin/Lovenox 30 mg SQ BID (WT < 150 kg, CrCl > 30 mL/min) AND/OR *Sequential Compression Device (SCD) 5 or more Highest Order ONE of the following medications: *Heparin 5000 units SQ TID (Preferred with Epidurals) *Enoxaparin/Lovenox 40 mg SQ daily (WT < 150 kg, CrCl > 30 mL/min) *Enoxaparin/Lovenox 30 mg SQ daily (WT < 150 kg, CrCl > 10-29 mL/min) *Enoxaparin/Lovenox 30 mg SQ BID (WT < 150 kg, CrCl > 30 mL/min) AND *Sequential Compression Device (SCD) Assessment and Plan Problem List: (1) Cellulitis of right lower extremity ICD Codes: L03.115 - Cellulitis of right lower limb Plan: will start on vancomycin follow labs did have elevated sed rate at 50 and CRP,rt lower extremity ultrasound was negative (2) Hyponatremia ICD Codes: E87.1 - Hypo-osmolality and hyponatremia Plan: may be component of dehydration as patient stated his appetite was poor recently will hydrate slowly as there is question of CHF (3) Elevated brain natriuretic peptide (BNP) level ICD Codes: R79.89 - Other specified abnormal findings of blood chemistry Plan: will follow up labs will get chest xray and ekg and 2d echo continue lasix for now PO (4) Atrial fibrillation ICD Codes: I48.91 - Unspecified atrial fibrillation Plan: continue lopressor and Xarelto 15 (5) CKD (chronic kidney disease) ICD Codes: N18.9 - Chronic kidney disease, unspecified Plan: will follow labs Assessment and Plan further plan as case develops ,patient believes he over did it with rehab at home that could have contributed to his cellulitis Code Status full Discussed Condition With patient Physician Certification 2 Midnight Certification Type: Admission for Inpatient Services Order for Inpatient Services The services are ordered in accordance with Medicare regulations or non- Medicare payer requirements, as applicable. In the case of services not specified as inpatient-only, they are appropriately provided as inpatient services in accordance with the 2-midnight benchmark. Estimated LOS (days): 3 3 days is the estimated time the patient will need to remain in the hospital, assuming treatment plan goals are met and no additional complications. Post-Hospital Plan: Not yet determined Problem Qualifiers (1) CKD (chronic kidney disease): Qualified Codes: N18.3 - Chronic kidney disease, stage 3 (moderate) Yaakov Baldwin MD Dec 11, 2017 19:28
[2017-12-11] MEDS ORDERED: Vancomycin Consult Pharmacy 1 EA OTHER SCH (20:00)
[2017-12-11 20:15] VITALS: BP 137/77; PULSE 101; RESP 20; TEMP 97.4; O2SAT 98
--- NOTE | 2017-12-11 20:15 | RADRPT ---
EXAM DATE: 12/11/2017 7:47 PM EDT AGE/SEX: 87 years / Male INDICATIONS: Shortness of breath. Cellulitis. CLINICAL DATA: This is the patient's initial encounter. Patient reports that signs and symptoms have been present for 1 day and indicates a pain score of 0/10. MEDICAL/SURGICAL HISTORY: . Hypertension. Thyroid disease. A-fib. Skin cancer. Anticoagulant th erapy. . Left shoulder skin cancer removal. COMPARISON: No prior exams available for comparison. FINDINGS: Heart size enlarged. Tortuous aorta. Mild basilar atelectasis. Small pleural effusions. No significan t lung consolidation. CONCLUSION: Cardiomegaly with trace pleural effusions. Electronically signed by: Teddy Pedersen MD 12/11/2017 8:14 PM EDT
[2017-12-11 21:00] VITALS: PULSE 111
[2017-12-11] MEDS: SODIUM CHLORIDE 0.9% FLUSH 10 ML FLUSH IV FLUSH SCH (21:00)
[2017-12-11] MEDS: DOCUSATE SODIUM 50 MG/SENNA 8.6 MG TAB PO SCH (21:00)
[2017-12-11] MEDS: TERAZOSIN HCL 1 MG CAP PO SCH (21:43)
[2017-12-11] MEDS: METOPROLOL TARTRATE 25 MG TAB PO SCH (21:44)
[2017-12-12] VITALS (7 sets, daily range): BP systolic 106–124; BP diastolic 60–73; PULSE 93–116; RESP 15–20; TEMP 96.7–99.1; O2SAT 95–97
[2017-12-12] MEDS: LEVOTHYROXINE SODIUM 112 MCG TAB PO SCH (06:10)
[2017-12-12 06:35] LABS: AUTOMATED NEUTROPHIL # 8.2 TH/MM3 (1.8-7.7); BASOPHIL % 0.1 % (0.0-2.0); EOSINOPHIL % 0.2 % (0.0-4.0); HEMATOCRIT 27.5 % (39.0-51.0); HEMOGLOBIN 9.1 GM/DL (13.0-17.0); LYMPH % 2.2 % (9.0-44.0); LYMPHOCYTE # 0.2 TH/MM3 (1.0-4.8); MEAN CELL VOLUME 78.6 FL (80.0-100.0); MEAN CORPUSCULAR HGB CONC 33.1 % (32.0-36.0); MONO % 2.8 % (0.0-8.0); MONOCYTE # 0.2 TH/MM3 (0-0.9); NEUT % 94.7 % (16.0-70.0); PLATELET COUNT 93 TH/MM3 (150-450); RED CELL DISTRIBUTION WIDTH 14.8 % (11.6-17.2); WHITE BLOOD COUNT 8.6 TH/MM3 (4.0-11.0)
[2017-12-12 06:47] LABS: BICARBONATE 21.6 MEQ/L (21.0-32.0); CALCIUM 7.9 MG/DL (8.5-10.1)
[2017-12-12 06:51] LABS: CREATININE 1.3 MG/DL (0.60-1.30)
[2017-12-12] MEDS: SODIUM CHLOR 0.9% 1000 ML INJ 1,000 ML IV SCH (09:24)
[2017-12-12] MEDS: SODIUM CHLORIDE 0.9% FLUSH 10 ML FLUSH IV FLUSH SCH ×2 (09:56→22:30)
[2017-12-12] MEDS: METOPROLOL TARTRATE 25 MG TAB PO SCH ×2 (09:57→22:29)
[2017-12-12] MEDS: DOCUSATE SODIUM 50 MG/SENNA 8.6 MG TAB PO SCH ×2 (09:58→22:29)
[2017-12-12] MEDS: FUROSEMIDE 20 MG TAB PO SCH (09:58)
[2017-12-12] MEDS: RIVAROXABAN 15 MG TAB PO SCH (09:58)
[2017-12-12] MEDS: FINASTERIDE 5 MG TAB PO SCH (09:58)
[2017-12-12] MEDS ORDERED: WALKER WHEELS/F1 MIS (16:13)
[2017-12-12] MEDS ORDERED: COMMODE 3-IN-11 MIS (16:13)
--- NOTE | 2017-12-12 16:17 | HHI.FF ---
Face to Face Verification Diagnosis: (1) Cellulitis of right lower extremity (2) Hyponatremia Physical Therapy Order: Evaluate and Treat Occupational Therapy Order: Evaluate and Treat Home Health Nursing Order: Medical education Wound care and dressing changes Nursing assessment with vital signs I have seen patient Noe Crain on 12/12/17. My clinical findings support the need for the requested home health care services because: Deconditioned w/ increased weakness High risk of falls I certify that my clinical findings support that this patient is homebound because: Unsteady gait/balance Unsafe to leave home unassisted Alley Viera MD Dec 12, 2017 16:17
--- NOTE | 2017-12-12 16:28 | HHI.PR ---
Subjective Remarks Patient feels weak and fatigued. Only has pain of RLE when moving. No fevers or chills. No shortness of breath. Pt and report that he "overdid it" with PT prior to coming to the hospital. He is hesitant to do PT here in hospital. He has not been out of bed today. requests walker and BSC; worried about taking him home due to weakness. We discussed SNF as option depending on how he does with PT here. Has not had a BM since admission. Objective Vitals Vital Signs Date Time Temp Pulse Resp B/P (MAP) Pulse Ox O2 Delivery O2 Flow Rate FiO2 12/12/17 13:24 96.7 93 18 120/63 (82) 96 12/12/17 09:26 98.2 116 18 114/67 (83) 95 12/12/17 04:00 98.0 96 20 107/60 (76) 96 12/12/17 00:00 99.1 105 20 110/69 (83) 96 12/11/17 21:00 111 12/11/17 20:24 12/11/17 20:15 97.4 101 20 137/77 (97) 98 12/11/17 17:40 92 18 115/63 (80) 99 Room Air 12/11/17 16:36 87 16 129/62 (84) 99 Room Air 12/12/17 12/12/17 12/13/17 15:00 23:00 07:00 Intake Total 250 ml Balance 250 ml Intake Oral 250 ml Result Diagram: 12/12/17 0525 12/12/17 0525 Imaging Last 24 hours Impressions Lower Extremity Ultrasound 12/11/17 0000 Signed Impressions: CONCLUSION: Negative for deep venous thrombosis. Objective Remarks GENERAL: Well-nourished, well-developed pleasant elderly male patient. SKIN: Warm and dry. HEAD: Normocephalic. EYES: No scleral icterus. No injection or drainage. NECK: Supple, trachea midline. No JVD or lymphadenopathy. CARDIOVASCULAR: Irregularly rate and rhythm without murmurs, gallops, or rubs. RESPIRATORY: Breath sounds equal bilaterally. No crackles. No accessory muscle use. GASTROINTESTINAL: Abdomen soft, non-tender, nondistended. EXTREMITIES: patient has 1+ pedal edema b/l. RLE has dull erythema and is warm to touch and tender. Small right lateral calf wound (approx 3cm) shallow, healing well. NEUROLOGICAL: Awake, alert, and oriented x 3. Non-focal. A/P Problem List: (1) Cellulitis of right lower extremity ICD Codes: L03.115 - Cellulitis of right lower limb (2) Hyponatremia ICD Codes: E87.1 - Hypo-osmolality and hyponatremia Plan: (3) Elevated brain natriuretic peptide (BNP) level ICD Codes: R79.89 - Other specified abnormal findings of blood chemistry Plan: (4) Atrial fibrillation ICD Codes: I48.91 - Unspecified atrial fibrillation Plan: (5) CKD (chronic kidney disease) ICD Codes: N18.9 - Chronic kidney disease, unspecified Plan: (6) Pulmonary hypertension ICD Codes: I27.20 - Pulmonary hypertension, unspecified (7) Severe tricuspid regurgitation by prior echocardiogram ICD Codes: I07.1 - Rheumatic tricuspid insufficiency Assessment and Plan -Cellulitis RLE - cont vancomycin IV. Not improved enough yet for DC. Repeat labs in a.m. -Thrombocytopenia - this is a new finding for him. Possibly due to vancomycin? Will check fibrinogen, PTT, PT. Recheck CBC tomorrow. If continues to downtrend will ask hematology opinion. -Paroxysmal afib - continue metoprolol, cont xarelto 15 mg daily. He is followed by Dr. Shultz as outpatient. -CKD stage 3 - stable. -Mild hyponatremia - he has had this in the past. It is improved today. Decrease IV rate to NS 50 ml/hr and likely DC tomorrow. -Elevated BNP - no signs of pulmonary overload, cxr was clear lung matre did show trace pleural effusions, lungs are clear. 2d echo is pending. Decrease IVF and likely DC tomorrow. -Constipation - continue bowel regimen, mobilize. -Deconditioning - order PT. Problem Qualifiers (1) CKD (chronic kidney disease): Qualified Codes: N18.3 - Chronic kidney disease, stage 3 (moderate) Alley Viera MD Dec 12, 2017 16:28
--- NOTE | 2017-12-12 16:48 | EKG ---
Date Performed: 12/11/2017 Time Performed: 20:06:27 PTAGE: 87 years EKG: ATRIAL FIBRILLATION MARKED LEFT AXIS DEVIATION RIGHT BUNDLE BRANCH BLOCK PROBABLE SEPTAL MY OCARDIAL INFARCTION ABNORMAL ECG NO PREVIOUS TRACING DOCTOR: Ronnell Wise Interpretating Date/Time 12/12/2017 16:45:06
[2017-12-12] MEDS ORDERED: VANCOMYCIN 1,000 MG/NS 250 ML IV SCH ×2 (18:00)
[2017-12-12 18:09] LABS: INTERNATIONAL NORMALIZED RATIO 1.6 RATIO; PROTHROMBIN TIME - PATIENT 16.5 SEC (9.8-11.6)
--- NOTE | 2017-12-12 20:12 | ECHRPT ---
Indication: EF assessment of CHF CONCLUSIONS Normal left ventricular size. Mild concentric left ventricular hypertrophy. The left ventricular systolic function is low normal with an estimated ejection fraction in the rang e of 50- 55%. The left atrial size is moderately dilated. The right atrial size is [id number] dilated. Mild mitral valve regurgitation. Mild mitral annular calcification. There is moderate tricuspid regurgitation. The estimated pulmonary arterial pressure is 62 mmHg. BP: 107 / 60 HR: 98 Rhythm: Atrial fibrillation, Atrial flut ter MEASUREMENTS (Male / Female) Normal Values Technical Quality:Fair 2D ECHO LV Diastolic Diameter PLAX 5.1 cm 4.2 - 5.9 / 3.9 - 5.3 cm LV Systolic Diameter PLAX 3.9 cm IVS Diastolic Thickness 1.0 cm 0.6 - 1.0 / 0.6 - 0.9 cm LVPW Diastolic Thickness 1.0 cm 0.6 - 1.0 / 0.6 - 0.9 cm LV Relative Wall Thickness 0.4 RV Internal Dim ED PLAX 3.1 cm LVOT Diameter 2.3 cm Aortic Root Diameter 3.4 cm LA Systolic Diameter LX 4.7 cm 3.0 - 4.0 / 2.7 - 3.8 cm DOPPLER AV Peak Velocity 156.0 cm/s AV Peak Gradient 9.7 mmHg AV Mean Gradient 5.5 mmHg AV Velocity Time Integral 22.8 cm LVOT Peak Velocity 81.6 cm/s LVOT Peak Gradient 2.7 mmHg LVOT Velocity Time Integral 12.9 cm AV Area Cont Eq vti 2.4 cm AV Area Cont Eq pk 2.2 cm Mitral E Point Velocity 109.1 cm/s LV E' Lateral Velocity 14.1 cm/s Mitral E to LV E' Lateral Ratio 7.7 LV E' Septal Velocity 5.0 cm/s Mitral E to LV E' Septal Ratio 21.7 TR Peak Velocity 361.0 cm/s TR Peak Gradient 52.1 mmHg Right Atrial Pressure 10.0 mmHg Pulmonary Artery Systolic Pressu 62.1 mmHg Right Ventricular Systolic Press 62.1 mmHg FINDINGS LEFT VENTRICLE Normal left ventricular size. Mild concentric left ventricular hypertrophy. The left ventricular systolic function is low normal with an estimated ejection fraction in the rang e of 50- 55%. RIGHT VENTRICLE Normal right ventricular size and systolic function. LEFT ATRIUM The left atrial size is moderately dilated. RIGHT ATRIUM The right atrial size is [id number] dilated. ATRIAL SEPTUM No atrial level shunt is demonstrated by color flow Doppler interrogation. AORTA The aortic root and proximal ascending aorta are not well visualized. MITRAL VALVE Structurally normal mitral valve. Mild mitral valve regurgitation. Mild mitral annular calcification. AORTIC VALVE Trileaflet aortic valve. No aortic valve stenosis or regurgitation. TRICUSPID VALVE There is moderate tricuspid regurgitation. The estimated pulmonary arterial pressure is 62.1 mmHg. PULMONARY VALVE No pulmonary valve regurgitation or stenosis. VESSELS The inferior vena cava is normal in size. PERICARDIUM No pericardial effusion. Jordin Márquez MD, FACC (Electronically Signed) Final Date:12 December 2017 20:11
[2017-12-12] MEDS: TERAZOSIN HCL 1 MG CAP PO SCH (22:29)
[2017-12-13] VITALS: BP 100/63; PULSE 98; RESP 20; TEMP 99; O2SAT 96
[2017-12-13] MEDS: SODIUM CHLOR 0.9% 1000 ML INJ 1,000 ML IV SCH (03:36)
[2017-12-13 04:00] VITALS: BP 118/56; PULSE 88; RESP 20; TEMP 97.3; O2SAT 97
[2017-12-13] MEDS: LEVOTHYROXINE SODIUM 112 MCG TAB PO SCH (05:18)
[2017-12-13 06:43] LABS: AUTOMATED NEUTROPHIL # 6.4 TH/MM3 (1.8-7.7); BASOPHIL % 0.1 % (0.0-2.0); EOSINOPHIL % 0.7 % (0.0-4.0); HEMATOCRIT 28.1 % (39.0-51.0); HEMOGLOBIN 8.9 GM/DL (13.0-17.0); LYMPH % 4.9 % (9.0-44.0); LYMPHOCYTE # 0.3 TH/MM3 (1.0-4.8); MEAN CELL VOLUME 81.2 FL (80.0-100.0); MEAN CORPUSCULAR HEMOGLOBIN 25.8 PG (27.0-34.0); MEAN CORPUSCULAR HGB CONC 31.8 % (32.0-36.0); MONO % 3.9 % (0.0-8.0); MONOCYTE # 0.3 TH/MM3 (0-0.9); NEUT % 90.4 % (16.0-70.0); PLATELET COUNT 93 TH/MM3 (150-450); RED BLOOD COUNT 3.46 MIL/MM3 (4.50-5.90); RED CELL DISTRIBUTION WIDTH 14.9 % (11.6-17.2)
[2017-12-13 06:58] LABS: CALCIUM 7.5 MG/DL (8.5-10.1)
[2017-12-13 07:02] LABS: CREATININE 1.3 MG/DL (0.60-1.30)
[2017-12-13] MEDS: DOCUSATE SODIUM 50 MG/SENNA 8.6 MG TAB PO SCH ×2 (07:59→20:56)
[2017-12-13] MEDS: FUROSEMIDE 20 MG TAB PO SCH (07:59)
[2017-12-13] MEDS: METOPROLOL TARTRATE 25 MG TAB PO SCH ×2 (07:59→20:56)
[2017-12-13] MEDS: FINASTERIDE 5 MG TAB PO SCH (08:00)
[2017-12-13] MEDS: RIVAROXABAN 15 MG TAB PO SCH (08:00)
[2017-12-13] MEDS: SODIUM CHLORIDE 0.9% FLUSH 10 ML FLUSH IV FLUSH SCH ×2 (08:00→20:56)
[2017-12-13] MEDS ORDERED: SYSTSOL EACH EYE (11:36)
[2017-12-13 11:50] VITALS: BP 121/65; PULSE 90; RESP 20; TEMP 96.1; O2SAT 97
--- NOTE | 2017-12-13 11:59 | HHI.PR ---
Subjective Remarks Mr. Crain got up to chair with assistance today, however is quite weak. Still no bowel movement. His RLE is quite ttp. Objective Vitals Vital Signs Date Time Temp Pulse Resp B/P (MAP) Pulse Ox O2 Delivery O2 Flow Rate FiO2 12/13/17 04:00 97.3 88 20 118/56 (76) 97 12/13/17 00:00 99.0 98 20 100/63 (75) 96 12/12/17 20:30 95 12/12/17 20:00 98.8 112 20 124/73 (90) 97 12/12/17 17:23 98.2 96 15 106/60 (75) 97 12/12/17 13:24 96.7 93 18 120/63 (82) 96 Result Diagram: 12/13/17 0540 12/13/17 0540 Imaging Last 24 hours Impressions Lower Extremity Ultrasound 12/11/17 0000 Signed Impressions: CONCLUSION: Negative for deep venous thrombosis. Objective Remarks GENERAL: Well-nourished, well-developed pleasant elderly male patient. SKIN: Warm and dry. HEAD: Normocephalic. EYES: No scleral icterus. No injection or drainage. NECK: Supple, trachea midline. No JVD or lymphadenopathy. CARDIOVASCULAR: Irregularly rate and rhythm without murmurs, gallops, or rubs. RESPIRATORY: Breath sounds equal bilaterally. No crackles. No accessory muscle use. GASTROINTESTINAL: Abdomen soft, non-tender, nondistended. EXTREMITIES: patient has 1+ pedal edema b/l. RLE has dull erythema and is warm to touch and tender. LLE appears similar with dull redness and warm to touch. Small right lateral calf wound (approx 3cm) shallow, healing well. NEUROLOGICAL: Awake, alert, and oriented x 3. Non-focal. A/P Problem List: (1) Cellulitis of right lower extremity ICD Codes: L03.115 - Cellulitis of right lower limb (2) Hyponatremia ICD Codes: E87.1 - Hypo-osmolality and hyponatremia Plan: (3) Elevated brain natriuretic peptide (BNP) level ICD Codes: R79.89 - Other specified abnormal findings of blood chemistry Plan: (4) Atrial fibrillation ICD Codes: I48.91 - Unspecified atrial fibrillation Plan: (5) CKD (chronic kidney disease) ICD Codes: N18.9 - Chronic kidney disease, unspecified Plan: (6) Pulmonary hypertension ICD Codes: I27.20 - Pulmonary hypertension, unspecified (7) Severe tricuspid regurgitation by prior echocardiogram ICD Codes: I07.1 - Rheumatic tricuspid insufficiency (8) Anemia in CKD (chronic kidney disease) ICD Codes: N18.9 - Chronic kidney disease, unspecified; D63.1 - Anemia in chronic kidney disease Assessment and Plan -Cellulitis RLE - he appears at this point to have b/l stasis dermatitis. MRSA nasal screen was negative. Will DC vancomycin and start cefazolin. Consult ID for opinion on antibiotics. Wrap legs and keep elevated. Giving samsca x 1 today for the edema and hyponatremia. -Thrombocytopenia - this is a new finding for him. Possibly due to vancomycin? fibrinogen, PTT, PT OK. Recheck CBC tomorrow. Will DC vancomycin change to cefazolin. Hematology opinion if no improvement. -Paroxysmal afib - continue metoprolol, cont xarelto 15 mg daily. He is followed by Dr. Shultz as outpatient. -CKD stage 3 - stable. -Mild hyponatremia - he has had this in the past. It is improved today. Will DC IVF. Samsca x 1 (hold lasix). -Elevated BNP - no signs of pulmonary overload, cxr was clear lung marte did show trace pleural effusions, lungs are clear. 2d echo shows preserved EF, pulm HTN and moderate tricuspid regurg. DC IVF. -Constipation - continue bowel regimen, mobilize. -Deconditioning -cont PT. He will likely need SNF at discharge. Problem Qualifiers (1) CKD (chronic kidney disease): Qualified Codes: N18.3 - Chronic kidney disease, stage 3 (moderate) Alley Viera MD Dec 13, 2017 11:59
[2017-12-13] MEDS: ceFAZolin 2 GM PREMIX 50 ML IV SCH ×2 (12:59→20:56)
[2017-12-13] MEDS ORDERED: TOLVAPTAN 15 MG TAB PO ONE ×2 (14:00→16:00)
[2017-12-13 15:28] VITALS: BP 127/73; PULSE 87; RESP 20; TEMP 97.2; O2SAT 97
--- NOTE | 2017-12-13 16:49 | PD.WCN.NOT ---
Wound Consult Description: Wound consult ordered by for wound management Communicated with: John LAWRENCE, Recommendation: 1. Cleanse right lower extremity partial thickness trauma wound with normal saline pat dry. 2. Apply Puracol AG cut to fit wound base cover with dry gauze secure with rolled gauze/paper tape.Leave Puracol AG in place x7 days change secondary dressing as need ed for exudate management/dislodgement. 3. Apply thin layer of Medline Calazime cream to periwound to moisture protection. 4. Follow up with out patient wound center. 5. Avoid prolong standing, Elevate lower extremities when in bed. Additional Information: Patient was seen today by repairer typewriter and John [facility] for wound management.Patient alert and oriented x4 .Sitting up in recliner upon writers arrival.Patient states he was just finishing up with physical therapy.Product Transfer Pumper was able to visualize lower extremities.Mild erythema with warmth noted to bilateral lower extremities.Faint but palpable pedal pulses.Right lower extremity has a partial thickness trauma wound located on lateral gaiter area measuring 2.8cm x 2.0cm x ~ <0.2cm.Wound base 80% moist red non granular tissue 20% moist pink/white tissue. Scant serous exudate noted with out odor.Wound edges are well defined irregular in shape and sloped with wound base.Periwound erythema noted intact warm to touch.Patient states both lower extremities are tender to touch.Wound cleansed with normal saline pat dry.Calazime cream applied to periwound and Puracol AG cut to fit wound base applied and covered with dry gauze secured with wiliam bandage.Patient states he is currently going to [facility] out patient wound center.Lower extremities elevated with pillow under then in recliner with yellow non slip socks in place.Patient had no further questions or concerns upon writers departure. Jewel Edwards CRN Dec 13, 2017 16:49
--- NOTE | 2017-12-13 19:21 | MB ---
cc: Matt Crowell MD, Abdul J MD DATE: 12/13/2017 REASON FOR CONSULTATION: Consult requested by Dr. Viera for evaluation and management of acute thrombocytopenia. HISTORY OF PRESENT ILLNESS: Nate is an 87-year-old male. He recently moved here from [place]. He stated that he had a history of lymphoma 7 years ago and he had chemotherapy and he went into remission. He also has a problem with atrial fibrillation, hypothyroidism, BPH and congestive heart failure. He was admitted to this hospital on 11/28 for cellulitis of the right lower extremity. He was treated with IV antibiotics and he was discharged to rehab on Zyvox. The patient was continued on Zyvox until the day of the second admission. Patient was getting physical therapy and he was noted to have more swelling of the right lower extremity. Therefore, he was sent back to the emergency room the day before yesterday. He had a Doppler ultrasound which did not show any DVT. His BNP was high. The patient is now admitted to the hospital for possible cellulitis of the right lower extremity. His CBC on this admission showed white count of 10.6, hemoglobin 10.5, MCV 79, platelet count is 107. CBC today showed that the platelet count had dropped to 93 and hemoglobin also dropped to 8.9. Because of the worsening thrombocytopenia, I have been asked to see him for further evaluation. The patient denies any previous history of thrombocytopenia. He denies any fever. He has been complaining of swelling and discomfort of both lower legs, more on the right than the left. It is difficult for him to ambulate without any assistance. He appears to be very frail. He is complaining of weakness. His appetite is good. The rest of the review of systems is negative. PAST MEDICAL HISTORY: 1. Non-Hodgkin's lymphoma diagnosed 7 years ago, treated with some unknown chemotherapy in [place]. 2. Atrial fibrillation. 3. Skin cancer left shoulder 4. Hard of hearing, 5. Hypertension, 6. Hypothyroidism. PAST SURGICAL HISTORY: Skin biopsy for cancer. ALLERGIES: EPINEPHRINE. MEDICATIONS PRIOR TO COMING TO THE HOSPITAL 1. Metoprolol. 2. Levothyroxine. 3. Xarelto. 4. Terazosin. 5. Finasteride. 6. Lasix 7. Zyvox. FAMILY HISTORY: None for malignancy. SOCIAL HISTORY: The patient does not smoke cigarettes, does not drink alcohol. He is retired. PHYSICAL EXAMINATION: GENERAL: Well-developed, frail, elderly white male in no apparent distress. VITAL SIGNS: Temperature 97.2, heart rate is 87, blood pressure 127/73, O2 saturation 97%. HEENT: PERRLA. EOMI, anicteric. No oral lesions noted. NECK: No lymphadenopathy noted. LUNGS: Clear. No wheezing, rhonchi or rales. HEART: Irregularly irregular. ABDOMEN: Soft, nontender. EXTREMITIES: Swelling noted in both lower legs. Both legs are wrapped in an Levi bandage. Chronic venostasis dermatitis noted. NEUROLOGIC: Awake, alert, oriented x3. SKIN: No other significant lesions noted. LABORATORY DATA: Reviewed on the EMR. RADIOGRAPH STUDIES: Reviewed in the EMR. ASSESSMENT: 1. Acute thrombocytopenia, most likely due to Zyvox or antibiotic. 2. Microcytic hypochromic anemia. This is multifactorial due to iron deficiency as well as renal insufficiency as well as chronic inflammation as his C-reactive protein and sedimentation rate both are very high. 3. 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 4. Bilateral pedal edema, most likely due to congestive heart failure as his BNP is very high at 1573. PLAN: I have reviewed his available records, and I have discussed with the patient regarding the causes of acute thrombocytopenia and microcytic hypochromic anemia. I was able to retrieve his previous lab results from the recent admission to the hospital on 11/28. On 11/27 when he came to the emergency room, his platelet count was 221. On 11/29 on the day of the discharge, his platelet count was 243. He was discharged on Zyvox. When he came back to the emergency room on 12/11, his platelet count was 107 and now it is 93. One of the common side effects of Zyvox is thrombocytopenia. This is an acute thrombocytopenia, which is due to the medication such as Zyvox. The Zyvox was discontinued on this admission. The patient was started on vancomycin, which has been stopped, and now he is on cefazolin. Certainly vancomycin also can cause thrombocytopenia. The patient does not have any evidence of disseminated intravascular coagulation. The INR is 1.6. APTT is 33.4, and fibrinogen is 538. I do not think the patient has Heparin-induced thrombocytopenia either, but certainly this could be a possibility but I doubt it. I expect his platelet count to improve, since the Zyvox was stopped 2 days ago. The patient also has microcytic hypochromic anemia. I will check the iron studies, B12, folate for evaluation of nutritional deficiency of worsening anemia. He has multifactorial anemia. His creatinine was 1.3. On his last admission, his creatinine was 1.9 so that has improved. His GFR is 52 now. On last admission, it was 34. I will check the serum erythropoietin for anemia of renal insufficiency. He also has chronic inflammation, which can cause bone marrow suppression and anemia. His C-reactive protein and sedimentation rate both are very high. Therefore, I have ordered JAZ, rheumatoid factor, LDH and reticulocyte count. My recommendation is to monitor his CBC. If platelet count continues to go down and if the above test results are negative, then we will consider possibility of heparin-induced thrombocytopenia, but I expect his platelet count to bounce back in the next several days since the Zyvox was just stopped 2 days ago. Thank you for asking my opinion. MD TUNG Morales/ , 06:40 PM , 07:19 PM
[2017-12-13 20:00] VITALS: PULSE 94
[2017-12-13 20:11] LABS: RETIC # 6.8 MIL/L (20.0-150.0); RETIC % 0.2 % (0.4-3.0)
[2017-12-13 20:26] LABS: % SATURATION IRON PROFILE 8.3 % (20-50); IRON (FE) 16 MCG/DL (65-175); TOTAL IRON BINDING CAPACITY 192 MCG/DL (250-450)
[2017-12-13 20:51] LABS: FERRITIN 813 NG/ML (26-388); FOLATE 9.3 NG/ML (3.1-17.5)
[2017-12-13] MEDS: TERAZOSIN HCL 1 MG CAP PO SCH (20:55)
[2017-12-13 22:40] LABS: RHEUMATOID FACTOR SCREEN NEGATIVE (NEGATIVE)
[2017-12-14] VITALS (7 sets, daily range): BP systolic 117–135; BP diastolic 66–72; PULSE 72–105; RESP 14–20; TEMP 97.1–98.6; O2SAT 95–99
[2017-12-14] MEDS: ceFAZolin 2 GM PREMIX 50 ML IV SCH ×3 (04:00→20:46)
[2017-12-14] MEDS: LEVOTHYROXINE SODIUM 112 MCG TAB PO SCH (04:21)
[2017-12-14 06:28] LABS: AUTOMATED NEUTROPHIL # 5.4 TH/MM3 (1.8-7.7); BASOPHIL % 0.1 % (0.0-2.0); EOSINOPHIL # 0.1 TH/MM3 (0-0.4); EOSINOPHIL % 1.4 % (0.0-4.0); HEMOGLOBIN 8.7 GM/DL (13.0-17.0); LYMPHOCYTE # 0.4 TH/MM3 (1.0-4.8); MEAN CELL VOLUME 78.7 FL (80.0-100.0); MEAN CORPUSCULAR HEMOGLOBIN 26.3 PG (27.0-34.0); MEAN CORPUSCULAR HGB CONC 33.5 % (32.0-36.0); MEAN PLATELET VOLUME 8.5 FL (7.0-11.0); MONO % 14.1 % (0.0-8.0); NEUT % 78.4 % (16.0-70.0); PLATELET COUNT 103 TH/MM3 (150-450); RED BLOOD COUNT 3.31 MIL/MM3 (4.50-5.90); RED CELL DISTRIBUTION WIDTH 14.7 % (11.6-17.2); WHITE BLOOD COUNT 6.9 TH/MM3 (4.0-11.0)
[2017-12-14 06:33] LABS: CALCIUM 7.9 MG/DL (8.5-10.1)
[2017-12-14 06:34] LABS: BICARBONATE 24.6 MEQ/L (21.0-32.0)
[2017-12-14 06:37] LABS: CREATININE 1.2 MG/DL (0.60-1.30)
[2017-12-14] MEDS: DOCUSATE SODIUM 50 MG/SENNA 8.6 MG TAB PO SCH ×2 (09:29→20:46)
[2017-12-14] MEDS: RIVAROXABAN 15 MG TAB PO SCH (09:29)
[2017-12-14] MEDS: FINASTERIDE 5 MG TAB PO SCH (09:29)
[2017-12-14] MEDS: METOPROLOL TARTRATE 25 MG TAB PO SCH ×2 (09:29→20:46)
[2017-12-14] MEDS: SODIUM CHLORIDE 0.9% FLUSH 10 ML FLUSH IV FLUSH SCH ×2 (09:29→20:53)
[2017-12-14] MEDS ORDERED: HYPROMELLOSE 0.3 % OPTH GEL 10 GM (0.34 FL OZ) TUBE EACH EYE PRN (11:15)
--- NOTE | 2017-12-14 12:08 | HHI.PR ---
Subjective Remarks Mr. Crain is doing better today. He did ambulate about the room with contact guard. He does not want to go to a SNF. Oncology notes reviewed. Objective Vitals Vital Signs Date Time Temp Pulse Resp B/P (MAP) Pulse Ox O2 Delivery O2 Flow Rate FiO2 12/14/17 10:38 18 12/14/17 08:00 97.1 105 18 122/72 (89) 95 12/14/17 04:00 98.6 105 16 131/72 (91) 95 12/14/17 00:00 98.6 80 16 117/67 (84) 96 12/13/17 20:00 94 12/13/17 15:28 97.2 87 20 127/73 (91) 97 Result Diagram: 12/14/17 0515 12/14/17 0515 Imaging Last 24 hours Impressions Lower Extremity Ultrasound 12/11/17 0000 Signed Impressions: CONCLUSION: Negative for deep venous thrombosis. Objective Remarks GENERAL: Well-nourished, well-developed pleasant elderly male patient. SKIN: Warm and dry. HEAD: Normocephalic. EYES: No scleral icterus. No injection or drainage. NECK: Supple, trachea midline. No JVD or lymphadenopathy. CARDIOVASCULAR: Irregularly rate and rhythm without murmurs, gallops, or rubs. RESPIRATORY: Breath sounds equal bilaterally. No crackles. No accessory muscle use. GASTROINTESTINAL: Abdomen soft, non-tender, nondistended. EXTREMITIES: patient has 1+ pedal edema b/l but improved. B/l LE with dull erythema and is warm to touch and tender. Small right lateral calf wound ( approx 3cm) shallow, healing well. NEUROLOGICAL: Awake, alert, and oriented x 3. Non-focal. A/P Problem List: (1) Cellulitis of right lower extremity ICD Codes: L03.115 - Cellulitis of right lower limb (2) Hyponatremia ICD Codes: E87.1 - Hypo-osmolality and hyponatremia Plan: (3) Elevated brain natriuretic peptide (BNP) level ICD Codes: R79.89 - Other specified abnormal findings of blood chemistry Plan: (4) Atrial fibrillation ICD Codes: I48.91 - Unspecified atrial fibrillation Plan: (5) CKD (chronic kidney disease) ICD Codes: N18.9 - Chronic kidney disease, unspecified Plan: (6) Pulmonary hypertension ICD Codes: I27.20 - Pulmonary hypertension, unspecified (7) Severe tricuspid regurgitation by prior echocardiogram ICD Codes: I07.1 - Rheumatic tricuspid insufficiency (8) Anemia in CKD (chronic kidney disease) ICD Codes: N18.9 - Chronic kidney disease, unspecified; D63.1 - Anemia in chronic kidney disease Assessment and Plan -Cellulitis RLE - he appears at this point to have b/l stasis dermatitis. MRSA nasal screen was negative. Cont cefazolin. Consult ID for opinion on antibiotics. Wrap legs and keep elevated, apply emerald hose if can tolerate. S/p samsca x 1 on 12/13 with improvement in edema and hyponatremia. Continue lasix 20 mg daily. Discussed with patient importance of controlling edema with leg elevation and wraps. -Thrombocytopenia - this is a new finding for him. Appreciate hematology input, this is likely due to medication (was on zyvox). Improving. -Paroxysmal afib - continue metoprolol, cont xarelto 15 mg daily. He is followed by Dr. Shultz as outpatient. -CKD stage 3 - stable. -Mild hyponatremia - he has had this in the past. It is improved today. S/p Samsca x 1. -Elevated BNP - no signs of pulmonary overload, cxr was clear lung marte did show trace pleural effusions, lungs are clear. 2d echo shows preserved EF, pulm HTN and moderate tricuspid regurg. DCed IVF. -Constipation - continue bowel regimen, mobilize. -Deconditioning - cont PT. Discussed with PT, he is doing better today and probably can be DC'ed with [facility] (he is declining SNF). Walker, wheelchair and BSC have been ordered. -Anemia in CKD - start feso4. DVT px - on xarelto. Problem Qualifiers (1) CKD (chronic kidney disease): Qualified Codes: N18.3 - Chronic kidney disease, stage 3 (moderate) Alley Viera MD Dec 14, 2017 12:08
[2017-12-14] MEDS ORDERED: WHEEMIS3 (12:11)
[2017-12-14] MEDS: FERROUS SULFATE 325 MG (65 MG ELEMENTAL IRON) TAB PO SCH ×2 (14:16→17:00)
--- NOTE | 2017-12-14 19:00 | PD.ONC.PN ---
Subjective Subjective Remarks Resting comfortably in bed in no distress. Objective Data Date Time Temp Pulse Resp B/P (MAP) Pulse Ox O2 Delivery O2 Flow Rate FiO2 12/14/17 18:19 97.4 77 17 132/71 (91) 99 12/14/17 12:00 98.1 72 14 130/68 (88) 96 12/14/17 10:38 18 12/14/17 08:00 97.1 105 18 122/72 (89) 95 12/14/17 04:00 98.6 105 16 131/72 (91) 95 12/14/17 00:00 98.6 80 16 117/67 (84) 96 12/13/17 20:00 94 12/14/17 12/14/17 12/14/17 07:00 15:00 23:00 Intake Total 170 ml Output Total 850 ml 100 ml Balance -680 ml -100 ml Result Diagram: 12/14/17 0515 12/14/17 0515 Laboratory Results Laboratory Tests Test 12/14/17 05:15 White Blood Count 6.9 TH/MM3 Red Blood Count 3.31 MIL/MM3 Hemoglobin 8.7 GM/DL Hematocrit 26.0 % Mean Corpuscular Volume 78.7 FL Mean Corpuscular Hemoglobin 26.3 PG Mean Corpuscular Hemoglobin Concent 33.5 % Red Cell Distribution Width 14.7 % Platelet Count 103 TH/MM3 Mean Platelet Volume 8.5 FL Neutrophils (%) (Auto) 78.4 % Lymphocytes (%) (Auto) 6.0 % Monocytes (%) (Auto) 14.1 % Eosinophils (%) (Auto) 1.4 % Basophils (%) (Auto) 0.1 % Neutrophils # (Auto) 5.4 TH/MM3 Lymphocytes # (Auto) 0.4 TH/MM3 Monocytes # (Auto) 1.0 TH/MM3 Eosinophils # (Auto) 0.1 TH/MM3 Basophils # (Auto) 0.0 TH/MM3 CBC Comment DIFF FINAL Differential Comment Blood Urea Nitrogen 35 MG/DL Creatinine 1.20 MG/DL Random Glucose 124 MG/DL Calcium Level 7.9 MG/DL Sodium Level 136 MEQ/L Potassium Level 4.1 MEQ/L Chloride Level 104 MEQ/L Carbon Dioxide Level 24.6 MEQ/L Anion Gap 7 MEQ/L Estimat Glomerular Filtration Rate 58 ML/MIN Administered Medications Medications (Trade) Dose Ordered Sig/Jignesh Route PRN Reason Start Time Stop Time Status Last Admin Dose Admin Finasteride (Proscar) 5 mg DAILY PO 12/12/17 09:00 12/14/17 09:29 Levothyroxine Sodium (Synthroid) 112 mcg DAILY@0600 PO 12/12/17 06:00 12/14/17 04:21 Metoprolol Tartrate (Lopressor) 25 mg BID PO 12/11/17 21:00 12/14/17 09:29 Rivaroxaban (Xarelto) 15 mg DAILY PO 12/12/17 09:00 12/14/17 09:29 Terazosin HCl (Hytrin) 2 mg HS PO 12/11/17 21:00 12/13/17 20:55 Sodium Chloride (NS Flush) 2 ml UNSCH PRN IV FLUSH FLUSH AFTER USING IV ACCESS 12/11/17 19:15 12/13/17 12:59 Sodium Chloride (NS Flush) 2 ml BID IV FLUSH 12/11/17 21:00 12/14/17 09:29 Acetaminophen (Tylenol) 650 mg Q4H PRN PO TEMP > 100.4 12/11/17 19:15 12/14/17 09:30 Senna/Docusate Sodium (Alethea-Colace) 1 tab BID PO 12/11/17 21:00 12/14/17 09:29 Magnesium Hydroxide (Milk Of Magnmanuelito Liq) 30 ml Q12H PRN PO Mild constipation 12/11/17 19:15 12/13/17 08:00 Cefazolin Sodium/ Dextrose 50 ml @ 100 mls/hr Q8H IV 12/13/17 12:00 12/14/17 14:16 Ferrous Sulfate (Ferrous Sulfate) 325 mg BID@12,17 PO 12/14/17 12:00 12/14/17 17:00 Objective Remarks GENERAL: Well-nourished, well-developed patient. SKIN: Warm and dry. HEAD: Normocephalic. EYES: No scleral icterus. No injection or drainage. NECK: Supple, trachea midline. No JVD or lymphadenopathy. LYMPHATIC: No adenopathy. CARDIOVASCULAR: Regular rate and rhythm without murmurs. RESPIRATORY:No accessory muscle use. EXTREMITIES: No cyanosis, or edema. MUSCULOSKELETAL: Adequate muscle tone. NEUROLOGICAL: No obvious focal deficit. Awake, alert, and oriented x3. PSYCHIATRIC: Appropriate mood and affect; insight and judgment normal. Assessment/Plan Assessment 1. Thrombocytopenia. B12, folate replete. No evidence of DIC, TTP, ITP. Low 4T score. Iron studies reveal chronic inflammation. Platelet count is uptrending. Continue to trend. 2. Anemia: multifactorial. ACD, renal disease contributing. Dawna Bagley MD Dec 14, 2017 19:00
[2017-12-14] MEDS: TERAZOSIN HCL 1 MG CAP PO SCH (20:46)
[2017-12-15] VITALS: BP 126/63; PULSE 100; RESP 20; TEMP 97.3; O2SAT 97
[2017-12-15 04:00] VITALS: BP 144/67; PULSE 97; RESP 20; TEMP 97.5; O2SAT 97
[2017-12-15] MEDS: ceFAZolin 2 GM PREMIX 50 ML IV SCH ×2 (04:15→12:29)
[2017-12-15] MEDS: LEVOTHYROXINE SODIUM 112 MCG TAB PO SCH (06:22)
[2017-12-15 08:00] VITALS: BP 122/62; PULSE 95; RESP 17; TEMP 96.9; O2SAT 98
[2017-12-15] MEDS: FINASTERIDE 5 MG TAB PO SCH (08:29)
[2017-12-15] MEDS: METOPROLOL TARTRATE 25 MG TAB PO SCH (08:29)
[2017-12-15] MEDS: DOCUSATE SODIUM 50 MG/SENNA 8.6 MG TAB PO SCH (08:29)
[2017-12-15] MEDS: RIVAROXABAN 15 MG TAB PO SCH (08:29)
[2017-12-15] MEDS: SODIUM CHLORIDE 0.9% FLUSH 10 ML FLUSH IV FLUSH SCH (08:29)
[2017-12-15] MEDS ORDERED: CEPH-460 PO (11:33)
[2017-12-15] MEDS ORDERED: FERR325T20 PO (11:33)
[2017-12-15 12:00] VITALS: BP 125/68; PULSE 88; RESP 17; TEMP 96.9; O2SAT 98
--- NOTE | 2017-12-15 12:07 | HHI.DS ---
Discharge Summary Admission Date Dec 11, 2017 at 17:56 Discharge Date: Dec 15, 2017 Admitting Diagnosis cellulitis, hyponatremia (1) Cellulitis of right lower extremity Diagnosis: Principal ICD Codes: L03.115 - Cellulitis of right lower limb (2) Hyponatremia Diagnosis: Principal ICD Codes: E87.1 - Hypo-osmolality and hyponatremia (3) Elevated brain natriuretic peptide (BNP) level ICD Codes: R79.89 - Other specified abnormal findings of blood chemistry (4) Atrial fibrillation ICD Codes: I48.91 - Unspecified atrial fibrillation (5) CKD (chronic kidney disease) ICD Codes: N18.9 - Chronic kidney disease, unspecified (6) Pulmonary hypertension ICD Codes: I27.20 - Pulmonary hypertension, unspecified (7) Severe tricuspid regurgitation by prior echocardiogram ICD Codes: I07.1 - Rheumatic tricuspid insufficiency (8) Anemia in CKD (chronic kidney disease) ICD Codes: N18.9 - Chronic kidney disease, unspecified; D63.1 - Anemia in chronic kidney disease Consultants Dr. Crowell - hematology Procedures None Brief History This is an 87-year-old male who presents to the emergency department with right lower extremity swelling that had been going on for 4 days, constant, severe, worsening associated with pain. He was seen at an urgent care 4 days prior to admission and had an ultrasound of the leg which was negative. The leg is gotten more red and more painful. Preceding this he was given exercises by physical therapy for his ankle and calf which he thinks may have exacerbated the swelling. He denies any other injuries. He is on Xarelto. He has a history of cellulitis in the right upper extremity for which he just finished a long course of linezolid was in hospital about 8 days ago. He denied any fevers or chills. Patient in er found to have rt lower extremity cellulitis also some chronic kidney disease and low sodium ,patient states appetite has been poor lately,a BNP was done and was elevated at 900 patient intermittently takes Lasix he thinks for edema. Denies fever ,chills ,SOB,chest pain recent rt upper extremity edema and cellulitis which resolved. CBC/BMP: 12/14/17 0515 12/14/17 0515 Significant Findings Laboratory Tests Test 12/12/17 17:50 12/12/17 18:00 12/13/17 05:40 12/13/17 18:45 Prothrombin Time 16.5 SEC (9.8-11.6) Activated Partial Thromboplast Time 33.4 SEC (24.3-30.1) Fibrinogen 538 mg/dL (227-377) Red Blood Count 3.46 MIL/MM3 (4.50-5.90) Hemoglobin 8.9 GM/DL (13.0-17.0) Hematocrit 28.1 % (39.0-51.0) Mean Corpuscular Hemoglobin 25.8 PG (27.0-34.0) Mean Corpuscular Hemoglobin Concent 31.8 % (32.0-36.0) Platelet Count 93 TH/MM3 (150-450) Neutrophils (%) (Auto) 90.4 % (16.0-70.0) Lymphocytes (%) (Auto) 4.9 % (9.0-44.0) Lymphocytes # (Auto) 0.3 TH/MM3 (1.0-4.8) Platelet Estimate LOW (NORMAL) Erythrocyte Sedimentation Rate 61 mm/hr (0-20) Blood Urea Nitrogen 40 MG/DL (7-18) Random Glucose 114 MG/DL (74-106) Calcium Level 7.5 MG/DL (8.5-10.1) Sodium Level 133 MEQ/L (136-145) Estimat Glomerular Filtration Rate 52 ML/MIN (>89) B-Type Natriuretic Peptide 1573 PG/ML (0-100) Reticulocyte Count 0.2 % (0.4-3.0) Absolute Reticulocyte Count 6.8 MIL/L (20.0-150.0) Iron Level 16 MCG/DL (65-175) Total Iron Binding Capacity 192 MCG/DL (250-450) Percent Iron Saturation 8.3 % (20-50) Ferritin 813 NG/ML (26-388) C-Reactive Protein 15.20 MG/DL (0.00-0.30) Total Protein 5.7 GM/DL (6.0-7.6) Test 12/14/17 05:15 Red Blood Count 3.31 MIL/MM3 (4.50-5.90) Hemoglobin 8.7 GM/DL (13.0-17.0) Hematocrit 26.0 % (39.0-51.0) Mean Corpuscular Volume 78.7 FL (80.0-100.0) Mean Corpuscular Hemoglobin 26.3 PG (27.0-34.0) Platelet Count 103 TH/MM3 (150-450) Neutrophils (%) (Auto) 78.4 % (16.0-70.0) Lymphocytes (%) (Auto) 6.0 % (9.0-44.0) Monocytes (%) (Auto) 14.1 % (0.0-8.0) Lymphocytes # (Auto) 0.4 TH/MM3 (1.0-4.8) Monocytes # (Auto) 1.0 TH/MM3 (0-0.9) Blood Urea Nitrogen 35 MG/DL (7-18) Random Glucose 124 MG/DL (74-106) Calcium Level 7.9 MG/DL (8.5-10.1) Estimat Glomerular Filtration Rate 58 ML/MIN (>89) PE at Discharge GENERAL: Well-nourished, well-developed pleasant elderly male patient. SKIN: Warm and dry. HEAD: Normocephalic. EYES: No scleral icterus. No injection or drainage. NECK: Supple, trachea midline. No JVD or lymphadenopathy. CARDIOVASCULAR: Irregularly rate and rhythm without murmurs, gallops, or rubs. RESPIRATORY: Breath sounds equal bilaterally. No crackles. No accessory muscle use. GASTROINTESTINAL: Abdomen soft, non-tender, nondistended. EXTREMITIES: patient has 1+ pedal edema b/l but improved. B/l LE with dull erythema and is warm to touch and tender. Small right lateral calf wound ( approx 3cm) shallow, healing well. NEUROLOGICAL: Awake, alert, and oriented x 3. Non-focal. Hospital Course He was admitted to the hospital and treated for the cellulitis which improved. At this point it appears to be more of a chronic venous stasis dermatitis. The patient is being treated with Levi wraps and PARISH hose and leg elevation. We will change his cefazolin to Keflex. MRSA nasal screen was negative. He also had hyponatremia which resolved with IV fluids. He was given Samsca x 1 on 12/13 with improvement in edema and hyponatremia. Continue lasix 20 mg daily. Discussed with patient importance of controlling edema with leg elevation and wraps. The patient hates the wraps. I did discuss with he and his that they can be removed at night for his comfort. He had mild thrombocytopenia which was a new finding for him. Appreciate hematology input, this is likely due to medication (was on zyvox). Improving. -Paroxysmal afib - continue metoprolol, cont xarelto 15 mg daily. He is followed by Dr. Shultz as outpatient. -CKD stage 3 - stable. -Elevated BNP - no signs of pulmonary overload, cxr was clear lung marte did show trace pleural effusions, lungs are clear. 2d echo shows preserved EF, pulm HTN and moderate tricuspid regurg. -Constipation - continue bowel regimen, mobilize. -Deconditioning - cont PT. Discussed with PT today and I observe the patient getting up from bed and walking. He still requires moderate assist is quite slow moving and requires significant coaching from physical therapy on body position. I think he is an extremely high fall risk. After further discussion with the patient and his they are reluctantly agreeing to go to a [place] [facility] facility. I think she will need about a week there. Walker, wheelchair and BSC have been ordered for home. -Anemia in CKD - started feso4. DVT px - on xarelto. Pt Condition on Discharge: Fair Discharge Disposition: Discharge to SNF Discharge Instructions DIET: Follow Instructions for: As Tolerated, No Restrictions Activities you can perform: Regular-No Restrictions New Medications: Cephalexin (Keflex) 500 Mg Cap 500 MG PO Q12H for Infection, #10 CAP 0 Refills Commode 3-in-1 (Commode 3-in-1) 1 Mis Mis EA .XX DIRECTED, #1 0 Refills Walker with Front Wheels (Walker with Front Wheels) 1 Mis Mis EA .XX DIRECTED, #1 0 Refills Wheelchair (Wheelchair) 1 Mis Mis EA .XX DIRECTED, #1 0 Refills Ferrous Sulfate (Ferosul) 325 Mg (65 Mg Iron) Tablet 325 MG PO BID@12,17 for anemia, #180 TAB 1 Refill Continued Medications: Finasteride (Finasteride) 5 Mg Tab 5 MG DAILY for Manage Prostate Problems, #30 TAB 0 Refills Do not crush. Furosemide (Lasix) 20 Mg Tab 20 MG PO DAILY, #30 TAB 0 Refills Levothyroxine (Levothyroxine) 112 Mcg Tab 112 MCG PO DAILY for Thyroid, #30 TAB 0 Refills Metoprolol Tartrate (Metoprolol Tartrate) 25 Mg Tab 25 MG PO BID, #60 TAB 0 Refills Polyethylene Glycol-Propylene Glycol Opth Drp (Systane Opth Drops) 0.4-0.3% Soln 1-2 DROP EACH EYE PRN PRN for DRY EYE, #1 BOTTLE 0 Refills Rivaroxaban (Xarelto) 15 Mg Tab 15 MG PO DAILY for Blood Clot Prevention, TAB 0 Refills Terazosin (Terazosin) 2 Mg Cap 2 MG PO HS, #30 CAP 0 Refills Alley Viera MD Dec 15, 2017 12:07
[2017-12-15] MEDS ORDERED: BISA10R RECTAL (12:13)
[2017-12-15] MEDS ORDERED: MAGN30S PO (12:13)
[2017-12-15] MEDS ORDERED: SENN187 PO (12:13)
[2017-12-15] MEDS ORDERED: PERI PO (12:13)
[2017-12-15] MEDS: FERROUS SULFATE 325 MG (65 MG ELEMENTAL IRON) TAB PO SCH (12:29)
[2017-12-15] MEDS ORDERED: VANCOMYCIN TROUGH ONE (17:45)
== END 2017-12-15 17:11 | DRG 603 ==
LOC: PHED 14:00 → PHEDA 17:56 → PH3A 20:24
PROVIDERS: ADMIT Internal Medicine; ATTEND Internal Medicine
DX: L03.115 Cellulitis of right lower limb (principal); I27.20 Pulmonary hypertension, unspecified; D69.6 Thrombocytopenia, unspecified; I50.9 Heart failure, unspecified; E87.1 Hypo-osmolality and hyponatremia; N18.3 Chronic kidney disease, stage 3 (moderate); E03.9 Hypothyroidism, unspecified; I07.1 Rheumatic tricuspid insufficiency; N40.0 Benign prostatic hyperplasia without lower urinary tract symptoms; D63.1 Anemia in chronic kidney disease; I48.0 Paroxysmal atrial fibrillation; K59.00 Constipation, unspecified; L30.9 Dermatitis, unspecified; Z85.828 Personal history of other malignant neoplasm of skin
CPT/HCPCS: 71046; 80048; 80053; 82607; 82668; 82728; 82746; 83540; 83550; 83615; 83880; 84165; 85025; 85044; 85384; 85610; 85652; 85730; 86038; 86140; 86430; 87641; 93005; 93308; 93971; 96365; J0690; J3370; J7030; J7050